=== PATIENT | female | born 1990 | race Two or more races ===

== ENCOUNTER 2019-01-31 21:02 | Inpatient (IN) | payer OTHER ==
[~2019-01-31] VITALS: Ht 157.5 cm; Wt 51.7 kg
[2019-01-31 21:19] LABS: BASOPHILS % (AUTO) 0.2 % (0.0-2.0); HEMATOCRIT 47 % (33-45); HEMOGLOBIN 15.5 g/dL (11.5-14.8); LYMPHOCYTES # (AUTO) 0.9 /CMM (0.8-4.8); LYMPHOCYTES % (AUTO) 5.9 % (20.0-44.0); MEAN CORPUSCULAR HGB CONC 33 g/dl (31.0-36.0); MEAN CORPUSCULAR VOLUME 92 fL (82-100); MONOCYTES # (AUTO) 0.9 /CMM (0.1-1.30); NEUTROPHILS # (AUTO) 13.6 /CMM (1.8-8.9); NEUTROPHILS % (AUTO) 87.9 % (43.0-81.0); PLATELET COUNT (AUTO) 226 /CMM (150-450); RED BLOOD CELL COUNT(AUTO) 5.11 MIL/uL (4.0-5.2); WHITE BLOOD COUNT (AUTO) 15.5 K/uL (4.3-11.0)
[2019-01-31] MEDS ORDERED: IV NS 0.9% 1,000 ML BAG IV ONE (21:30)
[2019-01-31 21:34] LABS: ALBUMIN 3.9 g/dL (3.4-5.0); ALCOHOL, BLOOD < 3 mg/dL (0-0); ALKALINE PHOSPHATASE 137 U/L (46-116); BILIRUBIN,DIRECT 0.2 mg/dL (0.0-0.2); BILIRUBIN,TOTAL 0.5 mg/dL (0.2-1.0); CALCIUM, SERUM 7.4 mg/dL (8.5-10.1); CARBON DIOXIDE 25 mmol/L (21-32); CHLORIDE 100 mmol/L (98-107); CREATININE 3.8 mg/dL (0.6-1.3); GLUCOSE 147 mg/dL (74-106); POTASSIUM 4.4 mmol/L (3.5-5.1); SODIUM SERUM 138 mmol/L (136-145); TOTAL PROTEIN, SERUM 7.6 g/dL (6.4-8.2)
[2019-01-31 21:37] LABS: ACETAMINOPHEN 0 ug/ml (10-30); SALICYLATE 1.9 mg/dL (2.8-20.0); UREA NITROGEN, BLOOD 82 mg/dL (7-18)
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
[2019-01-31 22:06] LABS: APPEARANCE,URINE Cloudy (CLEAR); BILIRUBIN,URINE SMALL (NEGATIVE); BLOOD, URINE Moderate Ery/uL (NEGATIVE); COLOR,URINE Yellow (YELLOW); KETONES,URINE 15 (NEGATIVE); LEUKOCYTE ESTERASE ,URINE Trace (NEGATIVE); NITRITE, URINE Negative (NEGATIVE); PH,URINE 8.5 (5.0-8.0); PROTEIN,URINE 30 mg/dl (NEGATIVE); UGLUCOSE Negative (NEGATIVE); UROBILINOGEN,URINE 0.2 EU/dL (0.2)
[2019-01-31 22:18] LABS: BACTERIA,URINE 3+ /HPF (None Seen); SQUAMOUS EPITHELIAL CELL,UR Few /HPF (None Seen)
[2019-01-31 22:30] LABS: MAGNESIUM 2.7 mg/dL (1.8-2.4); PHOSPHORUS 6.6 mg/dL (2.5-4.9)
--- NOTE | 2019-01-31 22:32 | NUR ---
Henrik Weems - [facility] [phone]
[2019-01-31 22:38] LABS: ALANINE AMINOTRANSFERASE 1146 U/L (12-78); ASPARTATE AMINOTRANSFERASE 3539 U/L (15-37)
[2019-01-31] MEDS ORDERED: LABETALOL HCL IV 100MG VIAL ONE (22:57)
[2019-01-31] MEDS ORDERED: LABETALOL 20 MG/4 ML VIAL IV ONE (23:00)
--- NOTE | 2019-01-31 23:06 | NUR ---
MEDICATED 10 MG OF LABETALOL IVP PER DR. HDZ, PT REYES WELL.
--- NOTE | 2019-01-31 23:24 | NUR ---
DR. HDZ AWARE OF LOW BP. STARTED NS [address] HDZ'S ORDER.
[2019-01-31] MEDS ORDERED: IV NS 0.9% 1,000 ML IV PRN (23:30)
[2019-01-31] MEDS ORDERED: MAG HYDROX/AL HYDROX/SIMETH 30 ML UDC PO PRN (23:30)
[2019-01-31] MEDS ORDERED: Z GUARD REMEDY 2 OZ OINT TP PRN (23:30)
[2019-01-31] MEDS ORDERED: IV NS 0.9% 500 ML BAG IV ONE (23:30)
[2019-01-31] MEDS ORDERED: MAGNESIUM HYDROXIDE 30 ML UDC PO PRN (23:30)
[2019-01-31] MEDS ORDERED: ONDANSETRON HCL/PF 4 MG/2 ML VIAL IVP PRN (23:30)
[2019-02-01] VITALS (30 sets, daily range): BP systolic 96–121; BP diastolic 37–96
--- NOTE | 2019-02-01 00:02 | NUR ---
PT ASLEEP, EASILY AWAKEN BY VERBAL STIMULI & WILL GO BACK TO SLEEP. RR EVEN & UNLABORED. ON ASSISTANT CLINICAL DIRECTOR, ST. WILL CONT TO MONITOR.
[2019-02-01] MEDS ORDERED: ENOXAPARIN SODIUM 60 MG/0.6 ML DISP.SYRIN SQ ONE ×2 (00:17→00:30)
--- NOTE | 2019-02-01 00:58 | NUR ---
[facility] called for higher level of care.
--- NOTE | 2019-02-01 01:04 | NUR ---
Call from Dr Reina, Patient not accepted at [facility].
--- NOTE | 2019-02-01 01:14 | NUR ---
[facility] called for transfer.
--- NOTE | 2019-02-01 02:03 | NUR ---
Call from [facility]. Pt not accepted.
--- NOTE | 2019-02-01 02:10 | NUR ---
Call back from [facility]. Pt not accepted.
--- NOTE | 2019-02-01 02:25 | NUR ---
SPOKE TO [facility] CALL [facility], PER ROXANN DECLINED ADMISSION.
--- NOTE | 2019-02-01 02:30 | NUR ---
Report given to Sobeida HUMPHREYS.
[2019-02-01] MEDS ORDERED: CEFTRIAXONE 1 G VIAL ONE (02:39)
--- NOTE | 2019-02-01 02:59 | NUR ---
pt to icu via gurney via gurney. als protocol with emt and rn,.
[2019-02-01] MEDS: CEFTRIAXONE 1 G in IV D5W 50 ML IV SCH (03:07)
[2019-02-01] MEDS ORDERED: LORAZEPAM INJ 2 MG/ML VIAL IV ONE (03:30)
[2019-02-01] MEDS ORDERED: LORAZEPAM INJ 2 MG/ML VIAL ONE (03:30)
--- NOTE | 2019-02-01 03:40 | NUR ---
DIRECTOR OF BUSINESS DEVELOPMENT NOTE RECEIVED PT VIA PokenRJANET. ALERT TO NAME. NOTED AGITATED,RESTLESS, CONFUSED AND YELLING. ON ROOM AIR, BREATHING REGULAR AND UNLABORED. TELE-ST. AFEBRILE. SPOKE WITH POWER GENERATION TURBINE ROOM OPERATOR JOLYNN SIEGEL WITH ORDERS FOR ATIVAN 1MG IVP X1 DOSE. ORDERS NOTED AND CARRIED OUT. PLACED PT ON BILATERAL SOFT WRIST RESTRAINTS WITH NO DISCOLORATION NOTED AND PALPABLE PULSES BILATERALLY. BED ALARM ENABLED, BED IN LOWEST POSITION AND LOCKED IN PLACE. CALL LIGHT WITHIN REACH. WILL CONTINUE TO MONITOR.
[2019-02-01 04:41] LABS: BASOPHILS % (AUTO) 0.1 % (0.0-2.0); EOSINOPHILS % (AUTO) 0.1 % (0.0-6.0); HEMATOCRIT 41 % (33-45); HEMOGLOBIN 13.7 g/dL (11.5-14.8); LYMPHOCYTES # (AUTO) 1.2 /CMM (0.8-4.8); LYMPHOCYTES % (AUTO) 8.9 % (20.0-44.0); MEAN CORPUSCULAR HGB CONC 33 g/dl (31.0-36.0); MEAN CORPUSCULAR VOLUME 92 fL (82-100); MONOCYTES # (AUTO) 0.8 /CMM (0.1-1.30); MONOCYTES % (AUTO) 5.8 % (2.0-12.0); NEUTROPHILS # (AUTO) 11.8 /CMM (1.8-8.9); NEUTROPHILS % (AUTO) 85.1 % (43.0-81.0); PLATELET COUNT (AUTO) 176 /CMM (150-450); RED BLOOD CELL COUNT(AUTO) 4.46 MIL/uL (4.0-5.2); WHITE BLOOD COUNT (AUTO) 13.9 K/uL (4.3-11.0)
[2019-02-01 05:04] LABS: THYROID STIMULATING HORMONE 0.153 uIU/mL (0.358-3.74)
[2019-02-01 05:08] LABS: ALBUMIN 3.2 g/dL (3.4-5.0); BILIRUBIN,DIRECT 0.2 mg/dL (0.0-0.2); BILIRUBIN,TOTAL 0.5 mg/dL (0.2-1.0); CALCIUM, SERUM 6.8 mg/dL (8.5-10.1); CREATININE 3.1 mg/dL (0.6-1.3); MAGNESIUM 2.7 mg/dL (1.8-2.4); PHOSPHORUS 5.8 mg/dL (2.5-4.9); POTASSIUM 4.1 mmol/L (3.5-5.1); TOTAL PROTEIN, SERUM 6.4 g/dL (6.4-8.2)
--- NOTE | 2019-02-01 07:12 | NUR ---
FIELD HANDYMAN INITIAL NOTES Rec'd pt on bed, lethargic, arousable to touch. On NC at 2lpm, no SOB. ST on telemonitor. Has 2 IV line access - L AC G18 w/ NS x 150 cc/hr infusing well & R wrist G20 SL, flushing well w/ no s/sx of infection/infiltration noted. Abdomen/bladder distended, tender upon palpation. B soft wrist restraints on d/t episode of restlessness & agitation. Safety precaution in place w/ bed in lowest & locked pos. Call light placed w/in reach. Will cont to monitor & attend pt needs.
--- NOTE | 2019-02-01 07:50 | NUR ---
Pt seen & examined by Dr. Soler w/ orders to do ECG.
--- NOTE | 2019-02-01 08:30 | NUR ---
Dr. Perales seen & examined pt, updated about pt status. MD agreed to insert IFC d/t bladder distention. On abdominal US showed 1.1L of urine. FC inserted via aseptic technique, able to drain 1.4L cloudy tea colored UOP.
[2019-02-01] MEDS: PANTOPRAZOLE 40 MG VIAL IV SCH (09:22)
--- NOTE | 2019-02-01 09:32 | NUR ---
CK MB 143.[address] Soler w/ NNO.
[2019-02-01] MEDS: IV NS 0.9% 1,000 ML IV PRN ×2 (09:37→18:15)
[2019-02-01 15:17] LABS: CREATININE, URINE 131.5 MG/DL (30.0-125.0); URINE TOTAL PROTEIN 83.7 mg/dL (0-11.9)
[2019-02-01 15:19] LABS: APPEARANCE,URINE Clear (CLEAR); BILIRUBIN,URINE SMALL (NEGATIVE); BLOOD, URINE Large Ery/uL (NEGATIVE); COLOR,URINE Yellow (YELLOW); KETONES,URINE Trace (NEGATIVE); LEUKOCYTE ESTERASE ,URINE Small (NEGATIVE); NITRITE, URINE Negative (NEGATIVE); PH,URINE 7.5 (5.0-8.0); PROTEIN,URINE 100 mg/dl (NEGATIVE); UGLUCOSE Negative (NEGATIVE); UROBILINOGEN,URINE 0.2 EU/dL (0.2)
[2019-02-01 15:27] LABS: BACTERIA,URINE 1+ /HPF (None Seen); SQUAMOUS EPITHELIAL CELL,UR Few /HPF (None Seen)
[2019-02-01 17:12] LABS: EOSINOPHIL,URINE None Seen
--- NOTE | 2019-02-01 18:33 | NUR ---
HIDE STRETCHER HAND CLOSING NOTES Pt resting comfortably on her bed, not in any distress. No SOB while on R/A. Remains ST on telemonitor. 2 IV line access - L AC G18 w/ NS x 150 cc/hr infusing well & R wrist G20 SL, kept patent & intact w/ no s/sx of infection/infiltration noted. FC kept patent & intact draining to tea colored yellowish UOP w/ pungent odor. B soft wrist restraints kept on d/t episode of restlessness & agitation. Safety precaution kept in place at all times w/ bed in lowest & locked pos. Call light placed w/in reach. Will endorse to PM RN for NANCY.
--- NOTE | 2019-02-01 19:40 | NUR ---
ICU/RECEIVING COORDINATOR RECEIVED REPORT FROM DAY SHIFT NURSE. SEE FLOWSHEET FOR ASSESSMENT. THERE IS ONLY ONE SKIN ISSUES THAT PT HAS, WHICH IS ADDRESSED ON FLOWSHEET ALONG WITH THE INTERVENTION. PT IS NPO, AND LETHARGIC. PT WAS THEN TURNED AND REPOSITIONED FOR COMFORT AND CARE. WILL MONITOR THIS PT.
--- NOTE | 2019-02-01 20:20 | NUR ---
ICU/COPY PREPARER FAMILY AT BEDSIDE, PT IS ACTING OUT, SOME AGITATION NOTED AT THIS TIME. WILL MONITOR THIS PT. MOTHER APPEARS TO ENABLE DAUGHTER TO SOME DEGREE BAD BEHAVIOR. WILL CONTINUE TO MONITOR THIS PT.
--- NOTE | 2019-02-01 21:05 | NUR ---
ICU/SEAMLESS HOSIERY KNITTER EXTREME AGITATION NOTED AT THIS TIME, POSSIBLE DETOX FROM THE POLYSUBSTANCE. NICHOLAS CALLED FOR ATIVAN
[2019-02-01] MEDS: LORAZEPAM INJ 2 MG/ML VIAL IV PRN (21:15)
--- NOTE | 2019-02-01 21:30 | NUR ---
ICU/VENTILATION MECHANIC OBTAINED ORDER FOR ATIVAN 1MG PRN IVP Q 2 HRS FOR AGITATION. CHARGE NURSE MADE AWARE OF THIS ORDER. IT WAS GIVEN. ASKED PARENTS TO LEAVE SO THAT PT COULD REST. WILL CONTINUE TO MONITOR THIS PT.
[2019-02-02] VITALS (18 sets, daily range): BP systolic 113–145; BP diastolic 64–93
[2019-02-02] MEDS: IV NS 0.9% 1,000 ML IV PRN (00:39)
--- NOTE | 2019-02-02 00:40 | NUR ---
ICU/QUALITY ENGINEER MEDICAL DEVICE PT WAS GIVEN AM CARE, TRIED TO GIVE ORAL CARE. PT ISN'T TOLERATED THIS WELL AT ALL, WAS VERY AGITATED. PT REMAINS ON ROOM AIR WITH SATURATION AT 98-100%. PT WAS TUNED AND REPOSITIONED FOR COMFORT AND CARE. WILL CONTINUE TO MONITOR THIS PT. NO ACUTE DISTRESS SEEN.
[2019-02-02] MEDS: CEFTRIAXONE 1 G in IV D5W 50 ML IV SCH (02:08)
[2019-02-02] MEDS: LORAZEPAM INJ 2 MG/ML VIAL IV PRN ×7 (02:08→22:22)
--- NOTE | 2019-02-02 02:10 | NUR ---
ICU/JUKE BOX SERVICER ATIVAN 1MG GIVEN VIA IVP BY CHARGE NURSE FOR EXTREME AGITATION. PT IS YELLING, KICKING, UNABLE TO REASON WITH PT. WILL CONTINUE TO MONITOR THIS PT. NO ACUTE DISTRESS SEEN AT THIS TIME.
[2019-02-02 04:37] LABS: BASOPHILS % (AUTO) 0.3 % (0.0-2.0); EOSINOPHILS % (AUTO) 0.9 % (0.0-6.0); HEMATOCRIT 38 % (33-45); HEMOGLOBIN 12.6 g/dL (11.5-14.8); LYMPHOCYTES # (AUTO) 0.9 /CMM (0.8-4.8); LYMPHOCYTES % (AUTO) 9.1 % (20.0-44.0); MEAN CORPUSCULAR HGB CONC 33 g/dl (31.0-36.0); MEAN CORPUSCULAR VOLUME 96 fL (82-100); MONOCYTES % (AUTO) 9.8 % (2.0-12.0); NEUTROPHILS # (AUTO) 8.3 /CMM (1.8-8.9); NEUTROPHILS % (AUTO) 79.9 % (43.0-81.0); PLATELET COUNT (AUTO) 118 /CMM (150-450); RED BLOOD CELL COUNT(AUTO) 3.97 MIL/uL (4.0-5.2); WHITE BLOOD COUNT (AUTO) 10.3 K/uL (4.3-11.0)
[2019-02-02 04:59] LABS: ALBUMIN 2.6 g/dL (3.4-5.0); BILIRUBIN,DIRECT 0.1 mg/dL (0.0-0.2); BILIRUBIN,TOTAL 0.5 mg/dL (0.2-1.0); CREATININE 1.3 mg/dL (0.6-1.3); MAGNESIUM 2.5 mg/dL (1.8-2.4); PHOSPHORUS 2.1 mg/dL (2.5-4.9); POTASSIUM 4.2 mmol/L (3.5-5.1); TOTAL PROTEIN, SERUM 5.4 g/dL (6.4-8.2)
--- NOTE | 2019-02-02 05:00 | NUR ---
ICU/EVENT PRODUCER AM LABS WERE DRAWN, AWAIT FOR ANY ABNORMAL RESULTS
--- NOTE | 2019-02-02 06:00 | NUR ---
ICU/SMALL PARTS SHAPER OPERATOR CRITICAL LAB OF TROP 5.345 CALLED, HOWEVER THIS IS TRENDING DOWN FROM 12 YESTERDAY.
--- NOTE | 2019-02-02 06:40 | NUR ---
ICU/GRAIN SAMPLER ATIVAN 1MG GIVEN VIA IVP BY CHARGE NURSE FOR EXTREME AGITATION. PT IS YELLING, KICKING, UNABLE TO REASON WITH PT. WILL CONTINUE TO MONITOR THIS PT. NO ACUTE DISTRESS SEEN AT THIS TIME.
--- NOTE | 2019-02-02 07:10 | NUR ---
VICE PRESIDENT SALES AND MARKETING INITIAL NOTES Rec'd pt on bed, drowsy, A/O x 1. On R/A w/ no SOB. ST on telemonitor. Has L AC G18 w/ NS x 150 cc/hr infusing well w/ no s/sx of infection/infiltration noted. FC draining to yellowish UOP. B soft wrist restraints on d/t restlessness & agitation. Safety precaution in place w/ bed in lowest & locked pos. Call light placed w/in reach. Will cont to monitor & attend pt needs.
[2019-02-02] MEDS: IV 1/2NS 1000 ML 1,000 ML IV PRN ×2 (07:43→16:19)
--- NOTE | 2019-02-02 08:00 | NUR ---
Pt seen & examined by Dr. Perales, updated about pt hx. Per , okay to downgrade to Tele w/ 1:1 sitter. CN & Nursing sup Lyndsay made aware.
[2019-02-02] MEDS: PANTOPRAZOLE 40 MG VIAL IV SCH (08:43)
[2019-02-02] MEDS ORDERED: POTASSIUM PHOSPHATE MM 7.5 MMOL in IV D5W 100 ML IV SCH (11:00)
--- NOTE | 2019-02-02 11:00 | NUR ---
Pt seen & examined by Dr. Soler, w/ orders made & carried out. updated about pt status.
--- NOTE | 2019-02-02 14:43 | NUR ---
Parents of the pt came, aware of the pt's aggressive & restless behavior. Made them aware that pt keep on removing her restraints & tries to get out of the bed.
--- NOTE | 2019-02-02 15:40 | NUR ---
TORPEDO SHOOTERANTIQUE FURNITURE REPRODUCER NOTES: Pt transferred to rm 102, tele status as ordered. Pt remains A/O x 1, drowsy. ST on telemonitor. IV line kept patent & intact w/ no s/sx of infection/infiltration noted w/ /2 NS x 125 cc/hr & Kphos drip infusing well. B soft wrist restraints kept on for pt's safety d/t restlessness/agitation. FC kept patent & intact draining to yellowish UOP. All belongings sent w/ pt including pt's medications. Report given to Maylin HUMPHREYS. No concerns/issues identified during transfer.
--- NOTE | 2019-02-02 16:00 | NUR ---
RN NOTE PER DR MONTANA, TO TAKE OUT SIM, SINCE PT IS AGITATED, KICKING AND PULLING SIM. ALSO PT IS STILL AGITATED AFTER A DOSE OF ATIVAN 1 MG, HE ORDERED TO INCREASE DOSE ATIVAN IV 2 MG Q2HR. WILL ORDER AND FOLLOW THROUGH.
--- NOTE | 2019-02-02 19:10 | NUR ---
RN CLOSING NOTE PT REMAINED CALM SINCE 1729, FELL ASLEEP. FAMILY AT BEDSIDE.
--- NOTE | 2019-02-02 21:17 | NUR ---
TRANSFER OF CARE 2116 RECEIVED PATIENT FROM PETR HALEY, AT 2116. PATIENT CURRENTLY IN BED, AGITATED, SCREAMING. A/O X 1. FAMILY AT BED SIDE. NO SIGNS OF RESPIRATORY DISTRESS NOTED. NO SHORTNESS OF BREATH NOTED. ON TELEMONITOR. HAS IV SITE LAC #18 G, WITH 1/2 NS @ 125 ML/HR, INFUSING WELL WITH NO S/S OF INFECTION/INFILTRATION NOTED. B SOFT WRIST RESTRAINTS ON DUE TO AGITATION AND RESTLESSNESS. VITAL SIGNS FOR 1999: TEMP 98.8 F VIA PO, HR 109, RESPIRATIONS 19, O2 SAT 100% ON ROOM AIR, BP 138/77, NO PAIN. FAMILY AT BED SIDE. SAFETY PRECAUTIONS IMPLEMENTED; CALL LIGHT WITHIN REACH, BED LOWEST POSITION, BED LOCKED, SIDE RAILS UP X2. WILL CONTINUE TO MONITOR.
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
[2019-02-02] MEDS ORDERED: ACETAMINOPHEN 650 MG/SUPP.RECT RC ONE (21:30)
--- NOTE | 2019-02-02 21:45 | NUR ---
RN NOTES 7866 TYLENOL SUPPOSITORY WAS REQUESTED BY FAMILY. BENTLEY CULP, AND BENTLEY MERRITT, AT BED SIDE TO WITNESS AND ASSIST ADMINISTRATION OF TYLENOL SUPPOSITORY. PATIENT TOLERATED WELL. WILL CONTINUE TO MONITOR.
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
[2019-02-03] VITALS: BP 119/81
[2019-02-03] MEDS: CEFTRIAXONE 1 G in IV D5W 50 ML IV SCH (02:25)
[2019-02-03 04:00] VITALS: BP 113/72
[2019-02-03] MEDS: LORAZEPAM INJ 2 MG/ML VIAL IV PRN ×6 (04:47→22:03)
--- NOTE | 2019-02-03 04:48 | NUR ---
RN NOTES PATIENT AGITATED. PATIENT TRIED TO KICK MYSELF AND ROBBI HAGAN. PATIENT SCREAMING PROFANITIES. VITAL SIGNS STABLE. WILL CONTINUE TO MONITOR.
--- NOTE | 2019-02-03 04:49 | NUR ---
RN NOTES ADMINISTERED LORAZEPAM 2MG/ML FOR AGITATION.
[2019-02-03 05:50] LABS: ALBUMIN 2.6 g/dL (3.4-5.0); BILIRUBIN,DIRECT 0.2 mg/dL (0.0-0.2); BILIRUBIN,TOTAL 0.5 mg/dL (0.2-1.0); TOTAL PROTEIN, SERUM 5.1 g/dL (6.4-8.2)
--- NOTE | 2019-02-03 06:11 | NUR ---
RN NOTES PATIENT IV WAS BEING PULLED ACCIDENTALLY AND THEN BECAME LOOSE WHILE CHANGING HER. IV SITE LEAKING. REMOVED IV SITE: LAC. WILL TRY TO ATTEMPT TO REINSERT NEW IV LATER.
--- NOTE | 2019-02-03 06:58 | NUR ---
RN CLOSING NOTES PATIENT IS CURRENTLY AWAKE. A/O X 1. UNABLE TO FOLLOW DIRECTIONS AT THIS TIME. PATIENT YELLING, SCREAMING CURRENTLY. NO SIGNS OF RESPIRATORY DISTRESS NOTED. NO SHORTNESS OF BREATH NOTED. ON TELEMONITOR. PATIENT MOVING AROUND TOO MUCH WHEN TRYING TO REINSERT IV, SUCH KICKING HER LEGS OUT AND MOVING HER BODY TOO MUCH. UNABLE TO ESTABLISH NEW IV SITE AT THIS TIME. TRIED TWICE TO REINSERT. B SOFT WRIST RESTRAINTS REMAIN ON, RENEWED. POSITION CHANGED, SAFETY CHECKS Q15 MINUTES, SKIN/CIRCULATION WITHIN NORMAL LIMITS. ALL NEEDS MET AT THIS TIME. NO COMPLAINTS OF PAIN THROUGHOUT THE SHIFT. VITALS STABLE. PATIENT KEPT CLEAN, DRY, AND COMFORTABLE WITH THE HELP OF ROBBI HAGAN, NEEDED. SAFETY PRECAUTIONS IMPLEMENTED; CALL LIGHT WITHIN REACH, BED LOWEST POSITION, BED LOCKED, SIDE RAILS UP X2. WILL ENDORSE TO DAY SHIFT NURSE FOR CONTINUITY OF CARE.
--- NOTE | 2019-02-03 07:20 | NUR ---
RN INITIAL NOTE PATIENT IN BED, SCREAMING AND YELLING. UNABLE TO FOLLOW DIRECTIONS AT THIS TIME. ALERT X2. SHE KNOWS WHAT HAPPENED TO HER AND THAT SHE TOOK COCAINE. PATIENT KEEPS FIGHTING HER BILATERAL RESTRAINTS AND KICKING NON STOP. NO IV LINE NOTED. WILL INSERT CHRISTIANO. REORIENTED PATIENT TO HER ROOM AND WHAT IS GOING ON. BED LOCKED AND IN LOWEST POSITION. WILL CONTINUE TO MONITOR
[2019-02-03 08:00] VITALS: BP 121/70
--- NOTE | 2019-02-03 08:00 | NUR ---
RN NOTE NEW SITTER ORDER. BILATERAL SOFT RESTRAINTS REMOVED.
--- NOTE | 2019-02-03 08:08 | NUR ---
WOUND CARE CONSULT: PT PRESENTS WITH INCONTINENCE OF STOOL AND RT HEEL INTACT DEEP TISSUE INJURY, PRESENT ON ADMISSION. PT MOVES ABOUT IN BED AND SCREAMS AT TIMES. SITTER AT BEDSIDE. RECOMMENDATIONS MADE FOR SKIN PROTECTION AND WOUND CARE. DISCUSSED WITH NURSING STAFF. WILL SEE PRN. CHOI IN AGREEMENT WITH PLAN OF CARE. Addendum: 02/03/19 at 0815 by ZANDRA ALMAZAN WNDNU Amended: Links added.
[2019-02-03] MEDS: PANTOPRAZOLE 40 MG VIAL IV SCH (08:23)
--- NOTE | 2019-02-03 08:30 | NUR ---
RN NOTE PATIENT WAS GIVEN ATIVAN PRN ORDERED.
[2019-02-03] MEDS: IV 1/2NS 1000 ML 1,000 ML IV PRN ×3 (11:28→20:53)
[2019-02-03 12:00] VITALS: BP 116/74
[2019-02-03 16:00] VITALS: BP 113/75
--- NOTE | 2019-02-03 19:22 | NUR ---
RN CLOSING NOTE PATIENT IN BED, VERY AGITATED. SITTER AT BEDSIDE. NEW IV SITE ESTABLISHED AT LEFT HAND #20 WITH HALF NS AT 125 ML/HR. WAS GIVEN ATIVAN AT 1800 ORDERED, PRN Q2H. ALL MEDS GIVEN. ALL NEEDS MET. UNABLE TO COMPREHEND AT THIS TIME. REPORT GIVEN TO NOC SHIFT FOR NANCY
[2019-02-03 20:00] VITALS: BP 132/85
[2019-02-03 23:13] LABS: ALBUMIN 2.8 g/dL (3.4-5.0); BILIRUBIN,DIRECT 0.2 mg/dL (0.0-0.2); BILIRUBIN,TOTAL 0.7 mg/dL (0.2-1.0); TOTAL PROTEIN, SERUM 5.3 g/dL (6.4-8.2)
[2019-02-04] MEDS: CEFTRIAXONE 1 G in IV D5W 50 ML IV SCH (02:55)
[2019-02-04] MEDS: LORAZEPAM INJ 2 MG/ML VIAL IV PRN (04:27)
--- NOTE | 2019-02-04 07:15 | NUR ---
MACHINE TOOL DRESSER OPENING RECEIVED REPORT FRO PM NURSE.PATIENT IN BED. MILD AGITATION .SITTER AT BEDSIDE. IV ON LEFT HAND #20 WITH HALF NS AT 125 ML/HR. AXOX1.NO SOB NO DISTRESS NOTED.ON TELE MONITOR SR WITH HR 75.SAFETY MEASURES IN PLACE.BED IS LOCKED AND IN LOW POSITION.SRX4 WITH SEIZURE PRECAUTIONS.WILL CONTINUE TO MONITOR.
[2019-02-04 08:00] VITALS: BP 118/77
[2019-02-04 08:09] VITALS: BP 118/77
[2019-02-04 08:09] LABS: BASOPHILS % (AUTO) 0.1 % (0.0-2.0); EOSINOPHILS % (AUTO) 0.4 % (0.0-6.0); HEMATOCRIT 32 % (33-45); HEMOGLOBIN 10.9 g/dL (11.5-14.8); LYMPHOCYTES # (AUTO) 1.9 /CMM (0.8-4.8); LYMPHOCYTES % (AUTO) 17.2 % (20.0-44.0); MEAN CORPUSCULAR HGB CONC 34 g/dl (31.0-36.0); MEAN CORPUSCULAR VOLUME 92 fL (82-100); MONOCYTES # (AUTO) 1.3 /CMM (0.1-1.30); MONOCYTES % (AUTO) 11.7 % (2.0-12.0); NEUTROPHILS # (AUTO) 7.9 /CMM (1.8-8.9); NEUTROPHILS % (AUTO) 70.6 % (43.0-81.0); PLATELET COUNT (AUTO) 125 /CMM (150-450); RED BLOOD CELL COUNT(AUTO) 3.52 MIL/uL (4.0-5.2); WHITE BLOOD COUNT (AUTO) 11.2 K/uL (4.3-11.0)
[2019-02-04] MEDS ORDERED: ACETAMINOPHEN 650 MG/SUPP.RECT RC PRN (08:30)
[2019-02-04] MEDS: PANTOPRAZOLE 40 MG VIAL IV SCH (08:36)
[2019-02-04] MEDS: IV 1/2NS 1000 ML 1,000 ML IV PRN (08:43)
[2019-02-04 09:08] LABS: ALBUMIN 2.6 g/dL (3.4-5.0); BILIRUBIN,TOTAL 0.5 mg/dL (0.2-1.0); CALCIUM, SERUM 7.3 mg/dL (8.5-10.1); CREATININE 0.8 mg/dL (0.6-1.3); MAGNESIUM 1.4 mg/dL (1.8-2.4); PHOSPHORUS 3.2 mg/dL (2.5-4.9); TOTAL PROTEIN, SERUM 5.1 g/dL (6.4-8.2)
[2019-02-04] MEDS ORDERED: POTASSIUM CHLORIDE 20 MEQ TAB.PRT.SR PO SCH (11:30)
[2019-02-04] MEDS: POTASSIUM CL. PREMIX PERIPHER. 50 ML IV SCH ×2 (12:09→15:11)
[2019-02-04] MEDS ORDERED: Magnesium 1GM/D5W 100ML PREMIX 100 ML IV ONE (14:00)
--- NOTE | 2019-02-04 14:00 | NUR ---
MS RN NOTE SEEN BY UPDATED ABOUT ATIENT CONDITION WITH LABS.GOT NEW ORDER FOR MG 4G.OK TO PLACE ON REGULAR DIET IF PATIENT PASS BED SIDE SWALLOW.
[2019-02-04 16:00] VITALS: BP 140/75
[2019-02-04] MEDS ORDERED: POTASSIUM CHLORIDE 20 MEQ TAB.PRT.SR PO ONE (17:00)
--- NOTE | 2019-02-04 17:00 | NUR ---
MS RN NOTE PATIENT OUT FOR CT SCAN,UNABLE TO DO SCAN BECAUSE PATIENT WAS MOVING NOT FOLLOWING COMMANDS.
[2019-02-04] MEDS ORDERED: Magnesium 1GM/D5W 100ML PREMIX PIGGYBACK IV SCH (18:00)
[2019-02-04] MEDS: Magnesium 1GM/D5W 100ML PREMIX 100 ML IV SCH ×3 (18:34→20:46)
--- NOTE | 2019-02-04 18:50 | NUR ---
MS RN CLOSING NOTE .PATIENT IN BED.AXOX1 .SITTER AT BEDSIDE. IV ON R HAND #22 WITH HALF NS AT 125 ML/HR.NO SOB NO DISTRESS NOTED.SAFETY MEASURES IN PLACE.BED IS LOCKED AND IN LOW POSITION.SRX4 WITH SEIZURE PRECAUTIONS.PATIENT REFUSED IVF DURING CARE.IV PULLED OUT.INSERTED NNEW IV LINE.WILL ENDORSE TO PM NURSE FOR NANCY.
--- NOTE | 2019-02-04 19:44 | NUR ---
MS RN NOTES, PATIENT IN BED SLEEPING AT THIS TIME, BREATHING EVEN AND UNLABORED, NO SOB/ACUTE DISTRESS NOTED AT THIS TIME, RIGHT HAND #22 WITH HALF NS AT 125 ML/HR, AND MAGNESIUM IV INFUSING AT THIS TIME, ONE MORE BAG TO GO, SAFETY MEASURES IN PLACE, BED LOCKED AND IN LOWEST POSITION, SITTER AT BEDSIDE, SRX4 PADDED S/R FOR SEIZURE PRECAUTIONS, WILL CONTINUE TO MONITOR CLOSELY.
[2019-02-04 20:00] VITALS: BP 123/82
[2019-02-04] MEDS: ACETAMINOPHEN 325 MG TABLET PO PRN (23:22)
[2019-02-05] MEDS: IV 1/2NS 1000 ML 1,000 ML IV PRN ×2 (00:28→19:49)
[2019-02-05] MEDS: CEFTRIAXONE 1 G in IV D5W 50 ML IV SCH (03:10)
[2019-02-05 04:00] VITALS: BP 121/79
[2019-02-05] MEDS: LORAZEPAM INJ 2 MG/ML VIAL IV PRN ×4 (05:16→15:33)
[2019-02-05 06:21] LABS: BASOPHILS % (AUTO) 0.3 % (0.0-2.0); EOSINOPHILS % (AUTO) 0.9 % (0.0-6.0); HEMATOCRIT 32 % (33-45); HEMOGLOBIN 10.8 g/dL (11.5-14.8); LYMPHOCYTES # (AUTO) 1.8 /CMM (0.8-4.8); LYMPHOCYTES % (AUTO) 13.6 % (20.0-44.0); MEAN CORPUSCULAR HGB CONC 34 g/dl (31.0-36.0); MEAN CORPUSCULAR VOLUME 90 fL (82-100); MONOCYTES # (AUTO) 1.4 /CMM (0.1-1.30); MONOCYTES % (AUTO) 10.6 % (2.0-12.0); NEUTROPHILS # (AUTO) 9.6 /CMM (1.8-8.9); NEUTROPHILS % (AUTO) 74.6 % (43.0-81.0); PLATELET COUNT (AUTO) 143 /CMM (150-450); RED BLOOD CELL COUNT(AUTO) 3.51 MIL/uL (4.0-5.2); WHITE BLOOD COUNT (AUTO) 12.9 K/uL (4.3-11.0)
--- NOTE | 2019-02-05 06:36 | NUR ---
RN NOTES, PATIENT IN BED AWAKE AT THIS TIME, BUT EASILY AROUSES TO TACTILE/VERBAL STIMULI, NO SOB/ACUTE DISTRESS NOTED, NO SIGNIFICANT CHANGE IN CONDITION DURING THE NIGHT, PATIENT KEPT DRY AND CLEAN, ALL NEEDS PROVIDED, SEIZURE PRECAUTIONS MAINTAINED, CALL LIGHT W/I REACH, WILL ENDORSE CONTINUITY OF CARE TO ONCOMING NURSE.
--- NOTE | 2019-02-05 07:00 | NUR ---
RN INITIAL NOTE PATIENT IN BED, ASLEEP BUT EASILY AROUSABLE TO NAME. ABLE TO FOLLOW SIMPLE DIRECTIONS AT THIS TIME. ALERT X2. HAS A RIGHT HAND #22 WITH HALF NS RUNNING AT 125 ML/HR. REORIENTED PATIENT TO HER ROOM AND WHAT IS GOING ON. SITTER AT BEDSIDE. BED LOCKED AND IN LOWEST POSITION. CALL LIGHT WITHIN REACH. WILL CONTINUE TO MONITOR
[2019-02-05 07:03] LABS: ALBUMIN 2.5 g/dL (3.4-5.0); BILIRUBIN,DIRECT 0.2 mg/dL (0.0-0.2); BILIRUBIN,TOTAL 0.6 mg/dL (0.2-1.0); CALCIUM, SERUM 7.1 mg/dL (8.5-10.1); CREATININE 0.7 mg/dL (0.6-1.3); MAGNESIUM 1.7 mg/dL (1.8-2.4); PHOSPHORUS 2.8 mg/dL (2.5-4.9); TOTAL PROTEIN, SERUM 4.9 g/dL (6.4-8.2)
[2019-02-05 07:34] LABS: POTASSIUM 2.8 mmol/L (3.5-5.1)
[2019-02-05 08:00] VITALS: BP 138/86
[2019-02-05] MEDS: PANTOPRAZOLE 40 MG VIAL IV SCH (08:18)
--- NOTE | 2019-02-05 10:14 | NUR ---
RN NOTE PATIENT HAS BEEN PICKED UP BY RADIOLOGY TO DO CT OF THE HEAD WITHOUT CONTRAST. VSS. PATIENT IS ASLEEP, BREATHING NON LABORED. ON ROOM AIR. NO SIGNS OF ANY DISTRESS AT THIS TIME.
[2019-02-05] MEDS: POTASSIUM CHLORIDE 20 MEQ TAB.PRT.SR PO SCH ×4 (10:37→13:27)
[2019-02-05] MEDS: Magnesium 1GM/D5W 100ML PREMIX 100 ML IV SCH ×2 (10:37→11:47)
--- NOTE | 2019-02-05 10:45 | NUR ---
RN NOTE DR SAAVEDRA AT BEDSIDE. REPLACE MG 2GM AND K DUR INCREASE TO 80 MEQ FROM 60 MEQ. ORDER CARRIED OUT, PHARMACY AWARE ABOUT THE CHANGES. PATIENT TOOK K DUR WITH APPLE SAUCE AND IS A LOT CALMER COMPARE TO PAST DAYS. CT DONE, WAS GIVEN ATIVAN PRIOR
--- NOTE | 2019-02-05 11:09 | NUR ---
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 RADIOLOGIST RECOMMENDS FOLLOW UP MRI OR CTA OF THE BRAIN FOR FURTHER EVAL.
[2019-02-05 16:00] VITALS: BP 125/76
--- NOTE | 2019-02-05 16:12 | NUR ---
RN NOTE PATIENT TRYING TO GET OUT OF BED, WAS SEEN BY PHYSICAL THERAPIST. PATIENT STILL UNSTEADY. PLACED A BEDSIDE COMMODE IN HER ROOM FOR EASY BATHROOM ACCESS. PATIENT NEEDS FREQUENT REORIENTATION, VERY CONFUSED BUT NO SCREAMING ANYMORE
--- NOTE | 2019-02-05 16:53 | NUR ---
RN NOTE PATIENT'S COUSIN AT BEDSIDE, JOEL ROMI AND ALONDRA ROMI. FAMILY REQUESTING TO TALK TO MD. CALLED PRINCE, PATIENT'S MOTHER AND THE ONE LISTED IN OUR RECORDS TO ACKNOWLEDGE TO GIVE INFORMATION TO JOEL AND ALONDRA. LEFT A VOICEMAIL. STILL WAITING FOR A CALL BACK ALSO, JOEL IS REQUESTING TO NOT ALLOW THE PATIENT'S COUSIN, NABOR JUNIOR TO VISIT THE PATIENT. AGAIN, WILL DOUBLE CHECK WITH THE MOTHER, PRINCE.
[2019-02-05] MEDS: ACETAMINOPHEN 325 MG TABLET PO PRN (17:13)
--- NOTE | 2019-02-05 18:44 | NUR ---
RN CLOSING NOTE PATIENT IN BED, AWAKE AND VERY CONFUSED. SITTER AT BEDSIDE. ON ROOM AIR, NO COMPLAINS OF ANY PAIN NOR SOB. HAS A BEDSIDE COMMODE. HAS RIGHT HAND #22 WITH HALF NS AT 125 ML/HR. ATIVAN GIVEN FOR ANXIETY. K AND MG HAS BEEN REPLACED. BED LOCKED AND IN LOWEST POSITION. CALL LIGHT WITHIN REACH. WILL ENDORSE TO NOC SHIFT FOR NANCY
--- NOTE | 2019-02-05 19:46 | NUR ---
ICU/AIR INTERCEPT CONTROLLER RECEIVED REPORT FROM DAY SHIFT NURSE. SEE FLOWSHEET FOR ASSESSMENT. THERE IS ONLY ONE SKIN ISSUES THAT PT HAS, WHICH IS ADDRESSED ON FLOWSHEET ALONG WITH THE INTERVENTION. PT IS ON A REGULAR DIET BUT REQUIRES ASST TO EAT. PT APPEARS TO BE LETHARGIC WITH INAPPROPRIATE BEHAVIOR. PT IS ABLE TO TURNED AND REPOSITIONED SELF. WILL MONITOR THIS PT, PT IS CURRENTLY A 1 TO 1
--- NOTE | 2019-02-05 19:59 | NUR ---
RN NOTE TALKED TO PRINCE, PATIENT'S MOM. PER NABOR MORRISON IS OK TO VISIT. JOEL LLANOS, GLENYS TAMAYO AND MEAGHAN OK TO GIVE INFORMATION TO AND OK TO TALK TO DOCTOR FOR UPDATES
[2019-02-05 20:00] VITALS: BP_SYST 107; BP_SYST 137; BP_DIAS 61; BP_DIAS 82
--- NOTE | 2019-02-05 20:38 | NUR ---
PAUL/21 DEALER PT APPEARS TO BE LETHARGIC AND INAPPROPRIATE BEHAVIOR. PT ASST TO CHAIR WITH UNSTEADY GAIT, WHERE SHE WAS GIVEN THE REMOTE FOR THE TV, WHERE SHE BEGAN TO BITE AND LICK THE REMOTE. PT WAS REORT TO TIME AND PLACE, AGAIN BEGAN TO LICK THE TV REMOTE. WHEN ASKED WHY SHE IS DOING THAT SHE SAID SHE DIDN'T KNOW. THEN SHE ASKED FOR POWDER. ASKED WHAT IS POWDER, SHE SAID TO SLEEP. WILL CONTINUE TO MONITOR THIS PT
--- NOTE | 2019-02-05 22:40 | NUR ---
PAUL/MARKETING DATABASE CONSULTANT WHILE CHANGING SHEETS FROM PT URINATED PAST DAPPER, PT SAT IN CHAIR AND EXPRESSED REMORSE, CRYING, SAID THAT "I FUCKED UP." THE CRYING WAS AN APPROPRIATE RESPONDS. PT ASST BACK TO BED, WITH WALKER, SOME UNSTEADY GAIT. NEEDS LOTS OF ORIENTATION. WILL MONITOR THIS PT.
[2019-02-06] MEDS: ACETAMINOPHEN 325 MG TABLET PO PRN (00:15)
--- NOTE | 2019-02-06 00:23 | NUR ---
PAUL/HARBOR MASTER 0010 PT AMBULATED TO BATHROOM, WAS ABLE TO VOID AND HAVE BM, PT WAS ABLE TO RESPOND TO THE PROMPT TO CLEAN HERSELF. PT THEN USED WALKER TO GO BACK TO BED, WITH STANDBY ASST. 0020 PT COMPLAINED ABOUT PAIN TO RIGHT HEEL AND LEG. PAIN RATED AT 6/10. PT WAS GIVEN PO TYLENOL 650MG FOR THIS. PT WAS ABLE TO SWALLOW WITHOUT ANY DIFFICULTY. PT CONTINUES TO BE A 1 TO 1 OR SITTER.
--- NOTE | 2019-02-06 01:45 | NUR ---
PAUL/PLASTICS FITTER DNP RANDI CALLED BACK SAID OK TO GIVEN 1 TAB 5/325 NORCO PO Q 4 HOURS.
--- NOTE | 2019-02-06 03:10 | NUR ---
PAUL/RETORT LOADER [T'S BEEN SLEEPING, JUST PLACED THE ORDER IN THE COMPUTER. PT IS CURRENTLY UP.
[2019-02-06] MEDS: IV 1/2NS 1000 ML 1,000 ML IV PRN (03:43)
[2019-02-06] MEDS: CEFTRIAXONE 1 G in IV D5W 50 ML IV SCH (03:45)
[2019-02-06 04:00] VITALS: BP 121/59
[2019-02-06] MEDS: HYDROCODONE/APAP 5/325MG 1 EACH TABLET PO PRN (04:46)
--- NOTE | 2019-02-06 05:03 | NUR ---
PAUL/PACKING AND FINAL ASSEMBLY SUPERVISOR PT COMPLAINED ABOUT PAIN TO RIGHT HEEL AND LEG, GAVE 1 TAB NORCO FOR THIS PO. PT HAD SOME DIFFICULTY WITH THIS SPITING IT OUT, THEN CRUSHED UP IN APPLESAUCE WHICH SHE TOOK THE MEDICATION. PAIN IS RATED 6/10. WILL MONITOR HER PAIN.
--- NOTE | 2019-02-06 05:35 | NUR ---
PAUL/SOCIETY REPORTER AM LABS ALONG WITH EKG DONE, AWAIT FOR ANY ABNORMAL LABS
--- NOTE | 2019-02-06 06:10 | NUR ---
PAUL/MASS COMMUNICATIONS PROFESSOR PT UP TO BATHROOM WITH ASST, BM X1 . THEN ASST BACK TO BED. PT REFUSED TO KEEP IV AND ARM STRAIGHT. TRIED TO KEEP PT'S ARM STRAIGHT, HOWEVER PT IS NONCOMPLIANT. IVF ARE ON HOLD NOW WILL NOTIFY .
[2019-02-06 06:41] LABS: CALCIUM, SERUM 7.8 mg/dL (8.5-10.1); CREATININE 0.7 mg/dL (0.6-1.3); MAGNESIUM 1.6 mg/dL (1.8-2.4); POTASSIUM 3.2 mmol/L (3.5-5.1)
--- NOTE | 2019-02-06 07:16 | NUR ---
MS RN OPENING NOTE RECEIVED REPORT FROM [facility] SHIFT NURSE. PT ASLEEP IN BED, ON ROOM AIR, SATURATING WELL. IV SITE ON RIGHT HAND G22 INTACT, PATENT, WITH SALINE LOCK- PER FACING BASTER NURSE PT IS REFUSING AND NON COMPLIANT WITH IV FLUIDS. BED IN LOW POSITION, LOCKED, CALL LIGHT WITHIN REACH.
[2019-02-06 08:00] VITALS: BP 156/80
[2019-02-06] MEDS: PANTOPRAZOLE 40 MG VIAL IV SCH (08:07)
--- NOTE | 2019-02-06 11:14 | NUR ---
FACESHEET FAXED TO GPS, CALLED GPS- SCOURER DOCTOR TODAY IS DR. COLE.
--- NOTE | 2019-02-06 11:59 | NUR ---
PT BY BEDSIDE
[2019-02-06] MEDS: POTASSIUM CHLORIDE 20 MEQ TAB.PRT.SR PO SCH ×2 (12:40→13:00)
[2019-02-06] MEDS: Magnesium 1GM/D5W 100ML PREMIX 100 ML IV SCH ×2 (12:40→14:40)
[2019-02-06] MEDS: LORAZEPAM INJ 2 MG/ML VIAL IV PRN (12:51)
[2019-02-06] MEDS ORDERED: IOHEXOL-350 100 ML VIAL IV ONE (13:09)
[2019-02-06] MEDS ORDERED: METOPROLOL TARTRATE INJ 5 MG/5 ML AMPUL ONE ×3 (13:10→13:44)
[2019-02-06] MEDS ORDERED: CT SWABBABLE VALVE TRANS SET 1 EA INFUS.SET MC ONE (13:10)
[2019-02-06] MEDS ORDERED: IV NS 0.9% 250 ML IV ONE (13:10)
[2019-02-06] MEDS: METOPROLOL TARTRATE INJ 5 MG/5 ML AMPUL IVP PRN ×7 (13:15→13:45)
[2019-02-06] MEDS ORDERED: NITROGLYCERIN 0.4 MG/TAB BOTTLE SL ONE (13:30)
[2019-02-06 16:00] VITALS: BP 116/87
--- NOTE | 2019-02-06 16:01 | NUR ---
PT'S FAMILY MEMBERS SPOKE WITH DECALER REGARDING ONLINE MARKETING SPECIALIST. FAMILY WOULD LIKE TO BE CALLED AFTER BUSINESS PLANNER SEE'S PATIENT TOMORROW. CONTACT INFO JOEL ROMI [phone] ([place])
--- NOTE | 2019-02-06 19:30 | NUR ---
MS RN CLOSING NOTE PT IN BED AWAKE, DISORIENTED, CONFUSED, ON ROOM AIR, SATURATING WELL, NO SIGNS OF RESPIRATORY DISTRESS NOTED. IV SITE ON RIGHT AC G18 INFUSING 1/2 NS AT 125ML/HR, NO SIGNS OF INFILTRATION NOTED. PROVIDED SAFETY AND COMFORT TO PT THROUGHOUT SHIFT. ALL DUE MEDS GIVEN. OBTAINED TELEPHONE CONSENT WITH PT'S MOTHER FOR RENETTA SCHEDULED FOR TOMORROW, PLACED INTO PT'S CHART. BED IN LOW POSITION, LOCKED, CALL LIGHT WITHIN REACH. ENDORSED TO NOC SHIFT NURSE.
--- NOTE | 2019-02-06 19:30 | NUR ---
MS RN NOTE PT IN BED AWAKE, DISORIENTED, CONFUSED, WITH INAPPROPRAITE BEHAVIOR. PATIENT ABLE TO INTRODUCE HERSELF BUT STATES SHE IS 19 Y/O PATIENT UNABLE TO FOLLOW COMMANDS ON ROOM AIR, SATURATING WELL, NO SIGNS OF RESPIRATORY DISTRESS NOTED. PATIENT BREATHING ON ROOM AIR W/O DIFFICULTY. SITTER AT BEDSIDE. PATIENT AND SITTER AWARE PATIENT WILL BE NPO FOR RENETTA PROCEDURE AT 0700 02/07/19 IV SITE ON RIGHT AC G18 INFUSING 1/2 NS AT 125ML/HR, NO SIGNS OF INFILTRATION NOTED. PROVIDED SAFETY AND COMFORT TO PT THROUGHOUT SHIFT. OBTAINED TELEPHONE CONSENT WITH PT'S MOTHER FOR RENETTA SCHEDULED FOR TOMORROW, PLACED INTO PT'S CHART. BED IN LOW POSITION, LOCKED, CALL LIGHT WITHIN REACH.
[2019-02-07] VITALS (33 sets, daily range): BP systolic 87–146; BP diastolic 45–92
[2019-02-07] MEDS: CEFTRIAXONE 1 G in IV D5W 50 ML IV SCH (03:27)
--- NOTE | 2019-02-07 04:00 | NUR ---
MS RN NOTE PATIENT DISLODGED IV LINE NEW IV PLACED IN L HAND 20 G
[2019-02-07] MEDS ORDERED: CEFTRIAXONE 1 G VIAL ONE (05:33)
--- NOTE | 2019-02-07 05:45 | NUR ---
MS RN NOTE PATIENT REPORT GIVEN TO TRISH HUMPHREYS FOR TRANSFER TO [facility]
--- NOTE | 2019-02-07 06:05 | NUR ---
MS RN NOTE PATIENT TRANSFERRED TO ROOM 254 WITH PETR CHAMBERS.
--- NOTE | 2019-02-07 06:15 | NUR ---
ICU/RN-RECEIVED PT. FROM MS-1 BY BED PER ACLS PROTOCOL. PT. SCHEDULED FOR RENETTA TODAY BY DR. HE. PT. IS AWAKE, ALERT, CONFUSED. BREATHING SPONTANEOUSLY TO ROOM AIR, SATS-99%. EKG SR. DENIES PAIN AT THIS TIME. PT. HAS A SITTER AT THE BEDSIDE.
--- NOTE | 2019-02-07 06:40 | NUR ---
ICU/RN- ANESTHESIA AND OR CREW HERE .
[2019-02-07] MEDS ORDERED: FENTANYL PF 100MCG/2ML AMPUL ONE (06:41)
[2019-02-07] MEDS ORDERED: ANESTHESIA TRAY IN PYXIS 1 EA TRAY MC ONE (06:47)
--- NOTE | 2019-02-07 06:50 | NUR ---
ICU/RN-DR. HE HERE.
--- NOTE | 2019-02-07 07:00 | NUR ---
ICU/RN: INITIAL NOTES,AM RECEIVED BED SIDE REPORT FROM NIGHT RN. AND ANESTHESIOLOGIST AT BEDSIDE PREPARING FOR SCHEDULED RENETTA. PT ALERT, AWAKE, CONFUSED. ON ROOM AIR, NO DISTRESS NOTED, SINUS ON TELE. PIV IN LEFT HAND C/D/I, NO S/S OF INFILTRATION NOTED. ALL NEEDS WILL BE ATTENDED TO, SAFETY MEASURES TAKEN. PT ON DIAPER. WILL CONTINUE CARE
--- NOTE | 2019-02-07 07:00 | NUR ---
ICU/RN- PT. STATUS UNCHANGED, REPORT GIVEN TO PETR ROLLE.
[2019-02-07 07:11] LABS: CALCIUM, SERUM 7.8 mg/dL (8.5-10.1); CREATININE 0.7 mg/dL (0.6-1.3); MAGNESIUM 1.5 mg/dL (1.8-2.4); POTASSIUM 3.3 mmol/L (3.5-5.1)
--- NOTE | 2019-02-07 07:44 | NUR ---
ICU/RN: RENETTA DONE, VSS, WILL CONTINUE TO MONITOR CLOSELY. PT ON 2LITERS NASAL CANULA, NO DISTRESS, MAINTAINING O2 SAT >95%. WILL CONTINUE TO MONITOR.
[2019-02-07] MEDS: IV 1/2NS 1000 ML 1,000 ML IV PRN (08:11)
[2019-02-07] MEDS ORDERED: Magnesium 1GM/D5W 100ML PREMIX 100 ML IV SCH (09:30)
[2019-02-07] MEDS: PANTOPRAZOLE 40 MG VIAL IV SCH (09:38)
[2019-02-07] MEDS: Magnesium 1GM/D5W 100ML PREMIX 100 ML IV SCH ×2 (09:56→11:38)
[2019-02-07] MEDS ORDERED: Magnesium 1GM/D5W 100ML PREMIX 1 G in PREMIX 1 EA IV SCH (10:00)
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
--- NOTE | 2019-02-07 15:36 | NUR ---
BRENNEN called [facility] and spoke to packing line operator [phone] and discussed the case. Net Front End Developer [phone] informed SW they will dispatch police officers to the hospital.
--- NOTE | 2019-02-07 16:26 | NUR ---
SINTIA Abad Officers Nick (#[id number]) and officer Mati (#[id number]) met with PETR HUTTON in pt's room. SW updated the officers regarding the pt's cousin Joanna's concerns. Officers informed BRENNEN they will call Joanna for further investigation.
--- NOTE | 2019-02-07 16:30 | NUR ---
ICU/RN: FOIL STAMP OPERATOR AT BEDSIDE WITH [employer].Officers Nick (#[id number]) and officer Mati (#[id number]) met with pt and asked questions. SW updated the officers regarding the pt's cousin Joanna's concerns. Officers informed SW they will call Joanna for further investigation. pt was unable to answer any questions.
--- NOTE | 2019-02-07 17:50 | NUR ---
ICU/RN: CALLED CARDIOVASCULAR SURGICAL TECH LING, NEURO CARDIOVASCULAR SURGICAL TECH REGARDING PT CONDITION. INFORMED HER PT IS CONTINUOUSLY BLINKING/ROLLING EYES (NEW FINDING). SHE WILL BE AT BEDSIDE TO EVALUATE PT.
--- NOTE | 2019-02-07 17:59 | NUR ---
WINDMILL MECHANICMORTGAGE LOAN REVIEWER NOTES PT TRANSFER REPORT GIVEN BY PETR SOTO IN ICU.RECEIVED PT TO ROOM 105.PT IS AWAKE BUT CONFUSED,CANNOT ABLE TO ANSWER THE QUESTIONS.ON TELE HR IS 77 WITH NSR.ON ROOM AIR,TOLERATING WELL.NO SOB AND ACUTE DISTRESS NOTED. IV LINE IS ON LEFT HAND G20 WITH IV 1/2 NS WITH 20MEQ KCL RUNNING @ 125ML/HR.SITE IS CLEAN,DRY AND INTACT.NO INFILTRATION NOTED.SKIN ASSESSMENT IS DONE AND NOTED WITH LEFT HEEL DTI PROTECTED WITH MEPLIX.SAFETY IA MAINTAINED AT ALL TIMES.BED ALARM IS ON,CALL LIGHT IS WITHIN REACH.WILL CONTINUE TO MONITOR THE PT CLOSELY.
--- NOTE | 2019-02-07 18:00 | NUR ---
ICU/RN: BEDSIDE REPORT ENDORSED TO TD PETR SHEPPARD. PT TRANSFERRED TO ROOM 105 WITH ACLS DELMAR. ALL BELONGINGS OF PT SENT. PT ON ROOM AIR, NO DISTRESS. SINUS ON TELE. PT REMAINS TO BE CONFUSED, DOES NOT ANSWER QUESTIONS APPROPRIATELY. ENDORSED REPORT FOR NANCY.
--- NOTE | 2019-02-07 18:45 | NUR ---
TOBACCO SCRAP SIFTER NOTES ,NEUROLOGIST ORDERED MRI WITH AND WITHOUT CONTRAST FOR AMS,CONSENT AND MRI QUESTIONER ANSWER GIVEN BY DANIKAABDULKADIR MORRISON,MOTHER.ANOTHER RN WITNESSED THE TELEPHONE CONSENT.
--- NOTE | 2019-02-07 18:55 | NUR ---
ONCOLOGY SOCIAL WORK CLOSING NOTES PT IS LYING ON BED,AWAKE AND CONFUSED.IV LINE IS IN PLACE WITH IV FLUID IS RUNNING.SITE IS CLEAN,DRY AND INTACT.NO SIGNIFICANT CHANGES NOTED IN THE SHIFT.WILL ENDORSE TO DIE CUTTER OPERATOR RN FOR NANCY.
--- NOTE | 2019-02-07 19:45 | NUR ---
PAUL/EXECUTOR OF ESTATE RECEIVED REPORT FROM DAY SHIFT NURSE. SEE FLOWSHEET FOR ASSESSMENT. THERE IS A FEW SKIN ISSUES THAT PT HAS, WHICH IS ADDRESSED ON FLOWSHEET ALONG WITH THE INTERVENTION. PT IS ON A REGULAR DIET BUT REQUIRES ASST TO EAT. PT APPEARS TO BE LETHARGIC WITH INAPPROPRIATE BEHAVIOR, WITH SEIZURE PRECAUTIONS. PT IS ABLE TO TURNED AND REPOSITIONED SELF. WILL MONITOR THIS PT.
--- NOTE | 2019-02-07 19:55 | NUR ---
PAUL/WICKER WORKER PT WAS SATURATED WITH URINE, FROM HAVING A DIAPER. AND LARGE LOOSE BM. PT WAS CLEANED AND REPOSITIONED FOR COMFORT AND CARE. WILL MONITOR THIS PT.
--- NOTE | 2019-02-07 20:10 | NUR ---
PAUL/DEVULCANIZER OPERATOR PT IS TRYING TO GET OUT OF BED, PT HAD AN ORDER FOR 1 TO 1 OR SITTER. ORDER WAS REPLACED WITH CHARGE NURSE AWARE AND AVIATION CONSULTANT AWARE. NURSE AND PUMPER GAUGER APPRENTICE CURRENTLY OUTSIDE ROOM.
[2019-02-07] MEDS: CEFTRIAXONE 2 G in IV D5W 100 ML IV SCH (22:20)
--- NOTE | 2019-02-07 23:01 | NUR ---
ICU/LEGGER PRESS OPERATOR RESTRAINTS WERE PLACED ON PT DUE TO UNABLE TO FIND SITTER.
[2019-02-08] VITALS: BP 131/79
--- NOTE | 2019-02-08 00:20 | NUR ---
PAUL/POKER MANAGER NEW IV HEPLOCK TO THE LEFT IJ 20G. WILL CONTINUE TO MONITOR THIS PT.
--- NOTE | 2019-02-08 03:33 | NUR ---
PAUL/EPIC INTERFACE ANALYST PT WAS GIVEN AM CARE, ALONG WITH ORAL CARE. PT ISN'T TOLERATED THIS WELL AT ALL, PT REMAINS VERY AGITATED. PT REMAINS ON ROOM AIR WITH SATURATION AT 98-100%. PT WAS TUNED AND REPOSITIONED FOR COMFORT AND CARE. WILL CONTINUE TO MONITOR THIS PT. NO ACUTE DISTRESS SEEN.
[2019-02-08 04:00] VITALS: BP 119/81
--- NOTE | 2019-02-08 07:00 | NUR ---
PAUL/TRANSPORTATION LEAD AM LABS WERE DRAWN
--- NOTE | 2019-02-08 07:23 | NUR ---
TEXTED DR. SOTO FOR MRI APPROVAL.
--- NOTE | 2019-02-08 07:42 | NUR ---
FIRM ADMINISTRATOR OPENING NOTES RECEIVED REPORT FROM PM NURSE.PT IN BED.AWAKE AND CONFUSED.SITTER AT BEDSIDE WITH RESTRAINTS.AGITATED.IV LINE IS IN PLACE WITH IV FLUID ONGOING PER ORDER.SITE IS CLEAN,DRY AND INTACT.ON TELE MONITOR SR.BED ISS LOW AND IN LOCKED POSITION.CALL LIGHT IN REACH.WILL CONTINUE TO MONITOR.
[2019-02-08 07:58] LABS: CREATININE 0.7 mg/dL (0.6-1.3); MAGNESIUM 1.6 mg/dL (1.8-2.4); POTASSIUM 3.7 mmol/L (3.5-5.1)
[2019-02-08 08:00] VITALS: BP 148/83
[2019-02-08] MEDS: PANTOPRAZOLE 40 MG VIAL IV SCH (08:48)
--- NOTE | 2019-02-08 09:44 | NUR ---
COUNTY PROGRAM TECHNICIAN NOTE SEEN BY ,UPDATED ABOUT PATIENT CONDITION WITH LABS.GOT NEW ORDER FOR MAGNESIUM IV 2G AND OK TO GIVE ATIVAN BEFORE MRI.WILL CONTINUE TO MONITOR.
[2019-02-08] MEDS ORDERED: Magnesium 1GM/D5W 100ML PREMIX PIGGYBACK IV ONE (10:00)
[2019-02-08] MEDS: Magnesium 1GM/D5W 100ML PREMIX 100 ML IV SCH ×2 (10:40→12:02)
[2019-02-08 12:00] VITALS: BP 128/83
[2019-02-08] MEDS: LORAZEPAM INJ 2 MG/ML VIAL IV PRN ×4 (13:58→22:55)
--- NOTE | 2019-02-08 15:35 | NUR ---
SHOPPING CENTRE MANAGER NOTE PATIENT TAKEN TO MRI.PRN ATIVAN GIVEN.PATIENT UNABLE TO STAY STILL.KEEP ON MOVING.UNABLE TO GET CLEAR MRI IMAGES.CALL MADE TO ,UPDATED ABOUT PATIENT CONDITION.MADE AWARE ABOUT PATIENT WAS NOT COOPERATIVE WHILE TAKING MRI.HER ABDOMEN BLOATED.GOT NEW ORDER FOR [place].WILL CONTINUE TO MONITOR.
[2019-02-08] MEDS: HYDROCODONE/APAP 5/325MG 1 EACH TABLET PO PRN (15:53)
[2019-02-08 16:00] VITALS: BP 124/67
[2019-02-08] MEDS ORDERED: MAG HYDROX/AL HYDROX/SIMETH 30 ML UDC PO PRN (16:00)
--- NOTE | 2019-02-08 17:06 | NUR ---
VALIDATION ANALYST NOTE WOUND CRAE CONSULT ORDERED,UNABLE TO TAKE PIC.PATIENT IS NOT COOPERATIVE.ATTEMPTED MULTIPLE TIME.PATIENT AGITATED.TRYING TO GET OUT OF BED.PRN ATIVAN GIVEN.FAMILY AT BEDSIDE.
--- NOTE | 2019-02-08 18:57 | NUR ---
WEB CONTENT DEVELOPER CLOSING NOTES PT IN BED.AGITATED.SITTER AND FAMILY AT BEDSIDE.STILL BITTING AND PULLING ALL LINEN AND TUBES . WITH RESTRAINTS.PRN IV MEDS GIVEN.IV LINE IS IN PLACE WITH IV FLUID ONGOING PER ORDER.SITE IS CLEAN,DRY AND INTACT.ON TELE MONITOR SR.BED IS LOW AND IN LOCKED POSITION.CALL LIGHT IN REACH.WILL ENDORSE TO PM NURSE FOR NANCY.
[2019-02-08 20:00] VITALS: BP 125/76
--- NOTE | 2019-02-08 20:11 | NUR ---
RN NOTE RECEIVED PATIENT FROM AN RN, PATIENT IS EXTREMELY AGITATED, BITING, SCREAMING INAPPROPRIATE WORDS, SINUS TACHYCARDIA 134 BEATS/MINUTE, FAMILY IS BY BEDSIDE, CALLED DOCTOR JOHANNY, DOCTOR KELSEY GAVE AN ORDER FOR HALDOL 2.5 MG EVERY 4 HOURS PO FOR MODERATE AGITATION AND COGENTIN 0.5MG EVERY 4 HOURS PRN PO FOR MODERATE AGITATION, HALDOL 5MG IM QD PRN FOR SEVERE AGITATION, ALL ORDERS READ BACK X2 AND TRANSCRIBED, CHARGE NURSE IS AWARE
--- NOTE | 2019-02-08 20:15 | NUR ---
TELE/RN NOTES Patient received in bed, agitated, family at bed side, No S/S of acute distress noted, respiration even and unlabored. No SOB noted. Patient alert and oriented x1, moving trying to get out of the restraints, restraints in place as ordered. IV sites with no S/S of infection infiltration, flushing well, running with fluid as ordered. Patient on tele monitoring with sinus tachy with rate 111. Safety maintained, bed at the lowest locked position, Will continue to monitor patient as per plan of care.
--- NOTE | 2019-02-08 20:17 | NUR ---
RN NOTE REPORT GIVEN TO PRIMARY NURSE JHON HUMPHREYS
[2019-02-08] MEDS ORDERED: HALOPERIDOL 5 MG TABLET PO PRN ×2 (20:30→21:30)
[2019-02-08] MEDS ORDERED: HALOPERIDOL LACTATE INJ 5 MG/ML VIAL IM PRN (20:30)
[2019-02-08] MEDS ORDERED: BENZTROPINE MESYLATE (1 MG) 1 MG TABLET PO PRN (20:30)
--- NOTE | 2019-02-08 21:00 | NUR ---
PATIENT NOTED WITH LEFT WRIST SKIN TEAR, DR TRISTIN BRYAN MADE AWARE WITH NEW ORDER FOR WOUND CONSULT. CHARGE NURSE AWARE.
[2019-02-08] MEDS: ACETAMINOPHEN 325 MG TABLET PO PRN (21:18)
--- NOTE | 2019-02-08 21:25 | NUR ---
Relayed to Dr. dominguez that patient VTE is 5, denies to put patient on any anticoagulants at this time, will continue to monitor
--- NOTE | 2019-02-08 22:56 | NUR ---
PRN ATIVAN GIVEN AT 2144, FORGOT TO SCAN, PATIENT STILL HAVING EPISODES OF AGITATION, MOVING, TRYING TO PULL LINES
--- NOTE | 2019-02-08 22:58 | NUR ---
DR COLE CALLED BACK AT THIS TIME, RELAYED PATIENT CURRENT CONDITION WITH NEW ORDER TO STOP GIVING ANY MORE ATIVAN TONIGHT AND GIVE PATIENT ONE MORE DOSE OF HALOPERIDOL 2.5MG PO ONE TIME ONLY NOW. ORDER READ BACK, NOTED
[2019-02-08] MEDS ORDERED: HALOPERIDOL 5 MG TABLET PO STA (23:07)
[2019-02-08] MEDS: CEFTRIAXONE 2 G in IV D5W 100 ML IV SCH (23:12)
[2019-02-09] VITALS: BP 123/78
[2019-02-09 04:00] VITALS: BP 123/78
--- NOTE | 2019-02-09 06:12 | NUR ---
patient noted severely agitated, trying to pull line, kicking, biting and trying to get out of the bed, re-orientation provided, tried to calm patient down, ineffective, patient continue with behavior, PRN haloperidol IM given as ordered, will continue to monitor. safety maintained, bed at the lowest locked position. sitter at bed side
--- NOTE | 2019-02-09 07:05 | NUR ---
HOME CARE COORDINATOR OPENING NOTES RECEIVED PT LYING ON BED,RESTLESS AND TRYING TO GET OUT FROM THE BED.ON TELE HR IS 93 WITH NSR.ON ROOM AIR,TOLERATING WELL.NO SOB AND ACUTE DISTRESS NOTED.SITTER IS AT BEDSIDE.IV LINE IS ON RIGHT AC G22,SL.LEFT EJ G20 WITH 1/2 NS WITH POTASSIUM IS RUNNING @125ML/HR IS RUNNING.SITE IS CLEAN,DRY AND INTACT.NO INFILTRATION NOTED.SAFETY IS MAINTAINED AT ALL TIMES.BED IS IN LOW POSITION AND LOCKED.CALL LIGHT IS WITHIN REACH.WILL CONTINUE TO MONITOR THE PT CLOSELY.
--- NOTE | 2019-02-09 07:25 | NUR ---
PATIENT REMAINED IN BED, STILL NOTED WITH EPISODES OF AGITATION. NO ACUTE DISTRESS NOTED, BREATHING EVEN AND UNLABORED. WILL ENDORSE TO AM SHIFT NURSE FOR NANCY.
--- NOTE | 2019-02-09 08:00 | NUR ---
SENIOR LEAD JAVA DEVELOPER NOTES PT IS RESTLESS AND REFUSED TO TAKE VITAL SIGNS.
[2019-02-09] MEDS: PANTOPRAZOLE 40 MG VIAL IV SCH (10:01)
[2019-02-09 12:00] VITALS: BP 118/78
[2019-02-09] MEDS: LORAZEPAM INJ 2 MG/ML VIAL IV PRN ×2 (12:07→19:23)
[2019-02-09] MEDS: HALOPERIDOL 5 MG TABLET PO PRN (14:16)
[2019-02-09 16:00] VITALS: BP 115/61
--- NOTE | 2019-02-09 19:40 | NUR ---
MS RN NOTES, PATIENT IN BED AT THIS TIME, RESTLESSNESS TRYING TO GET UP FROM BED, BUT PATIENT WANTED TO USE RESTROOM, AFTER THAT PATIENT CALM, SITTER AT BEDSIDE, BREATHING EVEN AND UNLABORED, NO SOB/ACUTE DISTRESS NOTED AT THIS TIME, RIGHT AC #22 WITH HALF NS WITH 20MEQ KCL AT 125 ML/HR, SAFETY MEASURES IN PLACE, BED LOCKED AND IN LOWEST POSITION, SRX4 PADDED S/R FOR SEIZURE PRECAUTIONS, WILL CONTINUE TO MONITOR CLOSELY. Addendum: 02/10/19 at 2227 by PERLA GARVIN RN PAUL HUMPHREYS NOTES,
[2019-02-09 20:00] VITALS: BP 112/68
--- NOTE | 2019-02-09 20:03 | NUR ---
MANAGER COMMUNICATION CLOSING NOTES PT IS STILL HAS RESTLESS AND AGITATED.RESPIRATION IS EVEN AND NONLABORED.NO SIGNIFICANT CHANGES NOTED IN THE SHIFT.ENDORSED TO BARREL COOPER RN FOR NANCY.
[2019-02-09] MEDS: OLANZAPINE 5 MG/TAB.RAPDIS PO SCH (21:29)
[2019-02-10] VITALS: BP 119/72
[2019-02-10 04:00] VITALS: BP 112/66
[2019-02-10 06:50] LABS: BASOPHILS # (AUTO) 0.1 /CMM (0.0-0.2); BASOPHILS % (AUTO) 0.3 % (0.0-2.0); HEMATOCRIT 34 % (33-45); HEMOGLOBIN 11.1 g/dL (11.5-14.8); LYMPHOCYTES # (AUTO) 2.5 /CMM (0.8-4.8); LYMPHOCYTES % (AUTO) 14.3 % (20.0-44.0); MEAN CORPUSCULAR HGB CONC 33 g/dl (31.0-36.0); MEAN CORPUSCULAR VOLUME 91 fL (82-100); MONOCYTES # (AUTO) 1.5 /CMM (0.1-1.30); MONOCYTES % (AUTO) 8.7 % (2.0-12.0); NEUTROPHILS # (AUTO) 13.2 /CMM (1.8-8.9); NEUTROPHILS % (AUTO) 75.7 % (43.0-81.0); PLATELET COUNT (AUTO) 468 /CMM (150-450); WHITE BLOOD COUNT (AUTO) 17.5 K/uL (4.3-11.0)
--- NOTE | 2019-02-10 07:00 | NUR ---
RN NOTES, PATIENT IN STABLE CONDITION DURING THE NIGHT, NO EPISODES OF AGITATION/RESTLESSNESS, ENDORSED FOR CONTINUITY OF CARE TO PETR MONTIEL.
[2019-02-10 07:18] LABS: CALCIUM, SERUM 8.3 mg/dL (8.5-10.1); CREATININE 0.7 mg/dL (0.6-1.3); MAGNESIUM 1.5 mg/dL (1.8-2.4); PHOSPHORUS 4.1 mg/dL (2.5-4.9); POTASSIUM 4.3 mmol/L (3.5-5.1)
--- NOTE | 2019-02-10 07:45 | NUR ---
RN NOTE: RECEIVED PATIENT IN BED DROWSY, BUT ABLE TO SPONTANEOUSLY OPEN HER EYES. 1:1 SITTER WAS OBSERVED AT THE BEDSIDE. RESPIRATION EVEN AND UNLABORED SATURATING 97% ON ROOM AIR. NOT ON ANY FORM OF DISTRESS. AFEBRILE. SKIN WARM TO TOUCH. HOB ELEVATED. NO BEHAVIORAL ISSUES NOTED AT THIS TIME. (R) AC IV SITE WAS NOTED INTACT AND PATENT INFUSING 1/2 NS + KCL 40 MEQ @125ML/HR. BED ALARMED AND LOCKED AT ALL TIMES. BED ON LOWEST POSITION AT ALL TIMES. CALL LIGHT WITHIN REACH. NEEDS ANTICIPATED. BREAKFAST TRAY WAS SERVED AND SITTER FED THE PATIENT. ASPIRATION AND SEIZURE PRECAUTION OBSERVED.
[2019-02-10 08:00] VITALS: BP 112/67
[2019-02-10] MEDS: PANTOPRAZOLE 40 MG VIAL IV SCH (08:37)
[2019-02-10] MEDS: Magnesium 1GM/D5W 100ML PREMIX 100 ML IV SCH ×2 (09:48→10:55)
--- NOTE | 2019-02-10 11:01 | NUR ---
RN NOTE: DR. COYNE WAS INFORMED ABOUT THE PATIENT'S POTASSIUM OF 4.3 AND THE CURRENT IVF WAS 1/2 NS + KCL 40 MEQ. PER , DC THE CURRENT IVF AND CHANGE TO 1/2 NS @125ML/HR. ORDER NOTED AND CARRIED OUT.
--- NOTE | 2019-02-10 11:35 | NUR ---
RN NOTE: HAND-OFF REPORT TO PAUL MEJIAS RN FOR CONTINUITY OF CARE. PATIENT REMAINED ON A 1:1 SITTER.
[2019-02-10] MEDS: LORAZEPAM INJ 2 MG/ML VIAL IV PRN (11:38)
--- NOTE | 2019-02-10 11:45 | NUR ---
CALENDER MACHINE OPERATOR NOTES RECEIVED PT FROM DINESH HUMPHREYS. PT IS A/OX 2 CONFUSED. PT IS WITH 1:1 SITTER AND SCHEDULED FOR MRI WITHOUT CONTRAST.
[2019-02-10 12:00] VITALS: BP 113/78
--- NOTE | 2019-02-10 12:00 | NUR ---
GRANTS ADMINISTRATOR NOTES PT LEFT FOR MRI PROCEDURE.
--- NOTE | 2019-02-10 12:15 | NUR ---
TOOL MACHINE SET UP OPERATOR NOTES PT IS BACK FROM MRI PROCEDURE. SHE IS IN STABLE CONDITION.
[2019-02-10 16:00] VITALS: BP 118/73
--- NOTE | 2019-02-10 18:53 | NUR ---
tele Addendum: 02/10/19 at 1854 by RANDELL CAMPBELL RN IGNORE THE NOTE
--- NOTE | 2019-02-10 18:56 | NUR ---
TIE SAWYER NOTES PATIENT MOTHER CALLED DINESH AND INFORMED THAT HER DAUGHTER`S EYE CONTACT LENSES ARE MISSING THERE IS A POSSIBILITY THAT PT IS WEARING THEM. TRIED TO REMOVE THE CONTACT LENSES WITH STERILE TECHNIQUE AND IT WAS UNSUCCESSFUL. WE ENCOURAGED PT TO REMOVE IT BY HERSELF BUT SHE IS CONFUSED AND NOT ABLE TO PERFORM IT. NO REDNESS AND DISCHARGED NOTED FROM EYES.
--- NOTE | 2019-02-10 19:50 | NUR ---
BURRER HAND NOTES, PATIENT IN BED AT THIS TIME, BREATHING EVEN AND UNLABORED, NO SOB/ACUTE DISTRESS NOTED, NO C/O PAIN OR DISCOMFORT, NO FACIAL GRIMACING NOTED, RIGHT AC #22 WITH HALF NS AT 125 ML/HR INFUSING WELL AND PATIENT TOLERATED WELL, NO S/S OF INFILTRATION NOTED, SAFETY MEASURES IN PLACE, BED LOCKED AND IN LOWEST POSITION, SITTER AT BEDSIDE, SRX4 PADDED S/R FOR SEIZURE PRECAUTIONS, WILL CONTINUE TO MONITOR CLOSELY.
[2019-02-10 20:00] VITALS: BP 113/71
[2019-02-10] MEDS: IV 1/2NS 1000 ML 1,000 ML IV PRN (20:16)
[2019-02-10] MEDS: OLANZAPINE 5 MG/TAB.RAPDIS PO SCH (21:00)
[2019-02-11] VITALS: BP 103/73
[2019-02-11 04:00] VITALS: BP 113/69
[2019-02-11] MEDS: IV 1/2NS 1000 ML 1,000 ML IV PRN ×2 (04:42→20:29)
[2019-02-11 06:29] LABS: BASOPHILS % (AUTO) 0.2 % (0.0-2.0); EOSINOPHILS % (AUTO) 0.9 % (0.0-6.0); HEMATOCRIT 34 % (33-45); HEMOGLOBIN 10.9 g/dL (11.5-14.8); LYMPHOCYTES # (AUTO) 1.7 /CMM (0.8-4.8); LYMPHOCYTES % (AUTO) 10.4 % (20.0-44.0); MEAN CORPUSCULAR HGB CONC 33 g/dl (31.0-36.0); MEAN CORPUSCULAR VOLUME 91 fL (82-100); MONOCYTES # (AUTO) 1.5 /CMM (0.1-1.30); MONOCYTES % (AUTO) 9.1 % (2.0-12.0); NEUTROPHILS # (AUTO) 13.1 /CMM (1.8-8.9); NEUTROPHILS % (AUTO) 79.4 % (43.0-81.0); PLATELET COUNT (AUTO) 517 /CMM (150-450); RED BLOOD CELL COUNT(AUTO) 3.68 MIL/uL (4.0-5.2); WHITE BLOOD COUNT (AUTO) 16.5 K/uL (4.3-11.0)
[2019-02-11 06:44] LABS: CALCIUM, SERUM 8.3 mg/dL (8.5-10.1); CREATININE 0.7 mg/dL (0.6-1.3); MAGNESIUM 1.7 mg/dL (1.8-2.4); PHOSPHORUS 4.2 mg/dL (2.5-4.9); POTASSIUM 4.1 mmol/L (3.5-5.1)
--- NOTE | 2019-02-11 06:48 | NUR ---
RN NOTES, PATIENT REMAINS STABLE , BREATHING EVEN AND UNLABORED, WITH STABLE VS, NO C/O PAIN OR DISCOMFORT, SITTER AT BEDSIDE, NO EPISODES OF AGITATION OR RESTLESSNESS, , NO SIGNIFICANT CHANGE OF CONDITION DURING THE NIGHT, IV SITE IN RIGHT AC 22G, CONT ON IV HYDRATION, NO S/S OF INFILTRATION, WILL ENDORSED CONTINUITY OF CARE TO ONCOMING NURSE.
--- NOTE | 2019-02-11 07:37 | NUR ---
RN OPENING NOTES RECEIVED PATIENT SLEEPING IN BED COMFORTABLY AT THIS TIME, EASILY AROUSED. SHE IS CONFUSED, VERBAL, AMBULATORY BUT ON BEDREST, SITTER AT BEDSIDE. SHE IS ON RA, TOLERATING WELL, SHOWS NO S/SX OF RESP DISTRESS OR SOB. SKIN IS NOT INTACT, DIAPER RASH IS PRESENT, L WRIST SKIN TEAR, AND R HEEL DTI. SHE IS ON A SOFT, CHOPPED, DIET. SHE HAS A RAC 22 G INFUSING NS AT 125 ML/HR. SAFETY MEASURES HAVE BEEN IMPLEMENTED, CALL LIGHT IS WITHIN REACH, BED IS IN LOWEST AND LOCKED POSITION, SIDE RAILS ARE UP X2, WILL CONTINUE TO MONITOR FOR ANY CHANGES.
[2019-02-11 08:00] VITALS: BP 97/60
--- NOTE | 2019-02-11 08:27 | NUR ---
WOUND CARE CONSULT: PT PRESENTS WITH RT HEEL INTACT DEEP TISSUE INJURY WHICH WAS NOTED TO BE PRESENT ON ADMISSION. PT ALSO NOTED TO HAVE RASH TO INNER BUTTOCKS/PERINEAL AREAS. PT HAS BEEN INCONTINENT AT TIMES. RECOMMENDATIONS MADE FOR SKIN PROTECTION AND CARE. PER NURSING STAFF, PT HAS BEEN USING BEDSIDE COMMODE AT TIMES WITH ASSISTANCE. SITTER AT BEDSIDE. DISCUSSED WITH NURSING STAFF. WILL SEE PRN. CHOI IN AGREEMENT WITH PLAN OF CARE. Addendum: 02/11/19 at 0830 by ZANDRA ALMAZAN WNDNU Amended: Links added.
--- NOTE | 2019-02-11 08:30 | NUR ---
REPORT GIVEN TO PETR JEAN BAPTISTE.
[2019-02-11] MEDS: PANTOPRAZOLE 40 MG VIAL IV SCH (09:00)
[2019-02-11] MEDS: CLOTRIMAZOLE 1% 15 GM TUBE TP SCH ×2 (09:00→17:29)
--- NOTE | 2019-02-11 10:02 | NUR ---
SW received a call from pt's mother requesting to set up with a meeting with SW. Meeting has been scheduled for tomorrow 02/12 at 1:30PM.
[2019-02-11] MEDS: Magnesium 1GM/D5W 100ML PREMIX 100 ML IV SCH ×2 (10:51→12:06)
[2019-02-11 12:00] VITALS: BP 101/68
--- NOTE | 2019-02-11 14:54 | NUR ---
BRENNEN received a call from pt's sister Teresa Yan from [place] . Teresa is planning to come to [facility] on Sunday to see her sister. She is concerned regarding pt. going home to live with their mother in [place]. Teresa stated, she is not sure if pt's mother will be able to care for her. BRENNEN informed Teresa she will contact her tomorrow at 1:30PM with mother present to discuss plan of care.
[2019-02-11] MEDS: ASPIRIN 81 MG TAB.CHEW PO SCH (15:19)
[2019-02-11 16:00] VITALS: BP 93/56
--- NOTE | 2019-02-11 16:04 | NUR ---
RN NOTE SPOKE WITH PT'S MOTHER PRINCE, REQUESTING TO SPEAK DR OAKES. PAGED HIS OFFICE AND LEFT VOICE MAIL TO CALL RN BACK. NO RESPONSE YET.
[2019-02-11 20:00] VITALS: BP 111/74
[2019-02-11] MEDS: OLANZAPINE 5 MG/TAB.RAPDIS PO SCH (21:11)
[2019-02-12] VITALS: BP 110/72
[2019-02-12 04:00] VITALS: BP 102/66
[2019-02-12] MEDS: IV 1/2NS 1000 ML 1,000 ML IV PRN ×2 (05:36→18:28)
[2019-02-12] MEDS: ACETAMINOPHEN 325 MG TABLET PO PRN (06:54)
--- NOTE | 2019-02-12 07:00 | NUR ---
RN NOTES, PATIENT REMAINS STABLE , BREATHING EVEN AND UNLABORED, WITH STABLE VS, NO C/O PAIN OR DISCOMFORT, SITTER AT BEDSIDE, NO EPISODES OF AGITATION OR RESTLESSNESS, NO SIGNIFICANT CHANGE OF CONDITION DURING THE NIGHT, IV SITE IN LEFT FA 18G, CONT ON IV HYDRATION, NO S/S OF INFILTRATION, CONTINUE 1:1 SITTER, WILL ENDORSED CONTINUITY OF CARE TO ONCOMING NURSE.
[2019-02-12 07:04] LABS: BASOPHILS % (AUTO) 0.5 % (0.0-2.0); EOSINOPHILS % (AUTO) 1.3 % (0.0-6.0); HEMATOCRIT 35 % (33-45); HEMOGLOBIN 11.5 g/dL (11.5-14.8); LYMPHOCYTES # (AUTO) 1.9 /CMM (0.8-4.8); LYMPHOCYTES % (AUTO) 17.4 % (20.0-44.0); MEAN CORPUSCULAR HGB CONC 33 g/dl (31.0-36.0); MEAN CORPUSCULAR VOLUME 90 fL (82-100); MONOCYTES # (AUTO) 1.2 /CMM (0.1-1.30); MONOCYTES % (AUTO) 10.7 % (2.0-12.0); NEUTROPHILS # (AUTO) 7.6 /CMM (1.8-8.9); NEUTROPHILS % (AUTO) 70.1 % (43.0-81.0); PLATELET COUNT (AUTO) 540 /CMM (150-450); RED BLOOD CELL COUNT(AUTO) 3.85 MIL/uL (4.0-5.2); WHITE BLOOD COUNT (AUTO) 10.8 K/uL (4.3-11.0)
--- NOTE | 2019-02-12 07:15 | NUR ---
RN OPENING NOTES RECEIVED REPORT FROM SKI LIFT ATTENDANT RN. PT IS AWAKE AND WHEN ASKED HOW SHE IS FEELING SHE STATES "FOZIA" AND THAT SHE IS A "SENORITA". PT NOT RESPODING CORRECTLY TO QUESTIONS WAS TOLD THIS IS HOW SHE HAS BEEN. SHE DID FINELY STATE SHE FELT FINE. PT HAS SITTER PRESENT AT BEDSIDE. PT HAS A L HAND GAUGE 20 RUNNING 1/2 NS @125 ML/HR. PT IS BREATHING EVEN UNLABORED. WILL CONTINUE TO MONITOR.
[2019-02-12 07:31] LABS: CALCIUM, SERUM 8.5 mg/dL (8.5-10.1); CREATININE 0.7 mg/dL (0.6-1.3); MAGNESIUM 1.8 mg/dL (1.8-2.4); PHOSPHORUS 4.2 mg/dL (2.5-4.9); POTASSIUM 4.3 mmol/L (3.5-5.1)
[2019-02-12 08:00] VITALS: BP 116/74
[2019-02-12] MEDS: ASPIRIN 81 MG TAB.CHEW PO SCH (09:14)
[2019-02-12] MEDS: CLOTRIMAZOLE 1% 15 GM TUBE TP SCH ×2 (09:15→17:46)
[2019-02-12] MEDS: PANTOPRAZOLE 40 MG VIAL IV SCH (09:15)
--- NOTE | 2019-02-12 13:30 | NUR ---
BRENNEN and lining caser Celia/Hernán met with pt's mother Rebecca and dad Vishnu for a family conference in regards to discharge plan. Per pt's mother Rebecca, she is not able to care for the pt. at this time, since pt. is unable to recognize her and communicate. Pt's sister Teresa and other family members are coming to visit the pt. this Sunday. Pt's mother was emotional regarding pt's medical condition. SW provided active listening and emotional support to her. Pt. has out of state insurance and informed SW that they believe Shazia had applied for Medi-brandin in [place]. BRENNEN informed her she will contact insurance liaison Bernadine Garcia and have her give them a call.
--- NOTE | 2019-02-12 14:31 | NUR ---
family conference done with family and cm,per mother she cannot take care of her ,dr. sparrow ordered PT,DISCHARGE PENDING.
[2019-02-12 16:00] VITALS: BP 117/70
--- NOTE | 2019-02-12 19:03 | NUR ---
RN CLOSING NOTES PT IS ASLEEP IN BED WITH MOTHER AND FATHER AT BEDSIDE. MOTHER CONCERNED ABOUT CONTACTS IN EYES PT NOT COMPLIANT AND STILL SHUTTING EYES AND NOT OBEYING COMMANDS. WILL HAVE TOOL GRINDING MACHINE OPERATOR CONTINUE TO MONITOR FOR NANCY. BED IS LOCKED AND IN LOWEST POSITION WITH CALL LIGHT IN REACH.
[2019-02-12 20:00] VITALS: BP 123/75
[2019-02-12] MEDS: HYDROCODONE/APAP 5/325MG 1 EACH TABLET PO PRN (23:16)
[2019-02-13 04:00] VITALS: BP 120/72
[2019-02-13] MEDS: IV 1/2NS 1000 ML 1,000 ML IV PRN ×2 (04:28→17:10)
--- NOTE | 2019-02-13 07:10 | NUR ---
MS RN OPENING NOTES. RECEIVED PT LYING ON BED.ALERT/ORIENTED X1 WITH AGITATION.SITTER IS AT BEDSIDE BECAUSE O0F THE SUICIDAL RISK.IV LINE PRESENT .SITE IS CLEAN,DRY AND INTACT.NO INFILTRATION NOTED.BED IS IN LOW POSITION AND LOCKED.CALL LIGHT IS WITHIN REACH.WILL CONTINUE TO MONITOR THE PT CLOSELY.
--- NOTE | 2019-02-13 08:00 | NUR ---
MS RN NOTES PT REPORT GIVEN TO PETR WINTERS IN [place].
--- NOTE | 2019-02-13 08:00 | NUR ---
MS RN NOTE RECEIVED PATIENT IN BED, SLEEPING BUR ABUSABLE TO VERBAL AND TACTILE STIMULI ,NO SOB NOTRF AT THIS TIME NO NC\O PAIN OR DISCOMFORT , BED IN LOWEST AND LOCKED POSITION , CALL LIGHT WITHIN REACH, SITTER AT BEDSIDE , WILL CONT TO MONITOR CLOSELY
--- NOTE | 2019-02-13 09:00 | NUR ---
MS RN NOTE SEEN BYPT ABLE TO AMBULATE WITH STAND BY ASSISTANCE
[2019-02-13] MEDS: ASPIRIN 81 MG TAB.CHEW PO SCH (09:51)
[2019-02-13] MEDS: PANTOPRAZOLE 40 MG VIAL IV SCH (09:51)
[2019-02-13] MEDS: CLOTRIMAZOLE 1% 15 GM TUBE TP SCH ×2 (09:57→16:48)
--- NOTE | 2019-02-13 13:00 | NUR ---
MS RN NOTE SEEN BY DR THEODORE WITH CONT CURRENT PLAN OF CARE
--- NOTE | 2019-02-13 14:22 | NUR ---
BRENNEN and case management manager Lluvia called pt's [id number] Fran to discuss discharge plan. Per Fran, he wanted to know what are pt's options. BRENNEN and Lluvia explained to him that pt. has limited options since she is from [place] and has no insurance. BRENNEN informed Fran that [facility] insurance liaison was referred to pt's mom to apply for Medi-brandin and they did that this morning via phone. road production general manager Lluvia informed Fran that pt. might be able to go to Mara's board and care once she has been evaluated by Mara. Mara also has a board and care in [facility], where the mother lives. However, it is private pay. Fran requested for Mara to contact him. Lluvia to give Fran Terry's contact number. Mara to evaluate the pt. tomorrow. Fran informed Lex he is coming to [place] tomorrow.
--- NOTE | 2019-02-13 15:00 | NUR ---
MS RN NOTE SEEN LITHOGRAPHIC PROOFER APPRENTICE FOR D\C PLANNING
--- NOTE | 2019-02-13 16:48 | NUR ---
MS RN NOTE UP ON CHAIR, ABLE TO SIT WELL , SITTER AT BEDSIDE
--- NOTE | 2019-02-13 18:30 | NUR ---
ELECTRICIAN MARINE NOTE STILL REFUSED DINNER,ENCOURAGE X3 , SITTER AT BEDSIDE
[2019-02-13 20:00] VITALS: BP 118/69
[2019-02-13] MEDS: OLANZAPINE 5 MG/TAB.RAPDIS PO SCH (21:27)
[2019-02-14 04:00] VITALS: BP 120/72
--- NOTE | 2019-02-14 07:30 | NUR ---
RN MS OPENING NOTES Patient received on room air, no sob noted, remains a/o x2 and with 1:1 sitter at all times. Patient remains with L hand 20g and 1/2 NS @! 125 mL per hour. No s/s of pain at this time and is resting comfortably on her bed. Bed at the lowest setting, call light within reach, side rails up x2.
[2019-02-14] MEDS: ASPIRIN 81 MG TAB.CHEW PO SCH (08:29)
[2019-02-14] MEDS: PANTOPRAZOLE 40 MG VIAL IV SCH (08:29)
[2019-02-14] MEDS: CLOTRIMAZOLE 1% 15 GM TUBE TP SCH ×2 (08:30→16:21)
[2019-02-14] MEDS: IV 1/2NS 1000 ML 1,000 ML IV PRN (11:36)
[2019-02-14 12:00] VITALS: BP 120/72
--- NOTE | 2019-02-14 14:14 | NUR ---
BRENNEN and caseworker intake met with pt's family members, Joanna (cousin) and aunt/ uncle. They are concerned with pt's medical condition and wanted to get an updated regarding pt's discharge plan. manager lsw will attempt to schedule a meeting with Dr. Wilson to meet with the family to discuss pt's medical condition. Pt' sister and [id number] will be arriving tomorrow to visit the pt.
--- NOTE | 2019-02-14 18:48 | NUR ---
RN NOTES Patient removed IV line at this time, tried reinserting, failed.
--- NOTE | 2019-02-14 18:54 | NUR ---
RN MS CLOSING NOTES Patient remains on room air, no sob noted, remains confused and a/o x2. Ambulates with assistance, Patient removed L hand 20 gauge, 1/2 NS 125 ml per hour. Bed at the lowest setting, call light within reach, side rails up x2. Will give report to NOC RN for NANCY bedside.
--- NOTE | 2019-02-14 19:00 | NUR ---
MS RN NOTE RECEIVED PT IN STABLE CONDITION A/O X 1-2, NOTED WITH SITTER AT BEDSIDE. NO SIGNS OF SOB OR DISTRESS, NO INDICATIONS OF PAIN OR N/V. PER SHIFT REPORT, NO IV NOTED. WILL TRY TO REINSERT. ALL CURRENT NEEDS ATTENDED TO. BED LOW, LOCKED, UPPER RAILS UP, AND CALL LIGHT WITHIN REACH. WILL CONT TO MONITOR.
[2019-02-14 20:00] VITALS: BP 116/78
[2019-02-14] MEDS: OLANZAPINE 5 MG/TAB.RAPDIS PO SCH (21:03)
[2019-02-15 04:04] VITALS: BP 118/66
--- NOTE | 2019-02-15 04:06 | NUR ---
MS RN NOTE ATTEMPTED TO START LINE ON PT. PT KEEPS MOVING IN BED AND LINE GETS PULLED. INGRID NOTIFIED OF NO LINE. WILL CONT. TO MONITOR.
--- NOTE | 2019-02-15 06:20 | NUR ---
MS RN NOTE PT REMAINS IN STABLE CONDITION A/O X 1-2, NOTED WITH SITTER AT BEDSIDE. NO SIGNS OF SOB OR DISTRESS, NO INDICATIONS OF PAIN OR N/V. PT NOTED WITHOUT IV, INGRID AWARE. ALL CURRENT NEEDS ATTENDED TO. BED LOW, LOCKED, UPPER RAILS UP, AND CALL LIGHT WITHIN REACH. WILL CONT TO MONITOR AND ENDORSE TO NEXT SHIFT FOR NANCY.
--- NOTE | 2019-02-15 07:30 | NUR ---
RECEIVE PT WITH NO IV LINE.
[2019-02-15 08:00] VITALS: BP 117/66
--- NOTE | 2019-02-15 08:20 | NUR ---
ATTEMPTED TO INCERT IV LINE. PATIENT REFUSED
[2019-02-15] MEDS: PANTOPRAZOLE 40 MG VIAL IV SCH (09:00)
[2019-02-15] MEDS: CLOTRIMAZOLE 1% 15 GM TUBE TP SCH ×2 (09:38→17:27)
[2019-02-15] MEDS: ASPIRIN 81 MG TAB.CHEW PO SCH (09:38)
[2019-02-15 16:00] VITALS: BP 115/69
[2019-02-15] MEDS: HALOPERIDOL 5 MG TABLET PO PRN (17:45)
--- NOTE | 2019-02-15 17:45 | NUR ---
PATIENT BECAME VERY AGITATED, PRN HALDOL 5MG PO GIVEN
--- NOTE | 2019-02-15 17:50 | NUR ---
PATIENT ASSISTED WITH FEEDING. NO SWALLOW PROBLEMS ON SOFT DIET.
--- NOTE | 2019-02-15 19:02 | NUR ---
PATIENT RESTING IN BED; CALM AND COOPERATIVE AT THIS TIME. ALL NEEDS ATTENDED. PATIENT 1;1 SITTER FOR SAFETY. SEIZER PRECAUTIONS IN PLACE. NO IV LINE ASSES; AWARE. WILL ENDORSE TO NEXT SHIFT FOR NANCY.
--- NOTE | 2019-02-15 20:03 | NUR ---
MS RN NOTES RECEIVED PATIENT AWAKE IN BED WITH NO DISTRESS NOTED. CALL LIGHT WITHIN REACH. SITTER AT BEDSIDE. PATIENT CONSTANTLY TRYING TO GET OUT OF BED BUT ABLE TO REDIRECT WITH CONTINUED ENCOURAGEMENT. NO C/O PAIN OR DISCOMFORT. ROOM FREE OF CLUTTER AND BELONGINGS KEPT NEAR BEDSIDE. BED IN LOW LOCK SETTING. WILL CONTINUE TO MONITOR.
[2019-02-15] MEDS: OLANZAPINE 5 MG/TAB.RAPDIS PO SCH (21:08)
[2019-02-16] VITALS: BP 112/69
--- NOTE | 2019-02-16 06:33 | NUR ---
MS RN NOTES PATIENT ASLEEP IN BED WITH NO DISTRESS NOTED. CALL LIGHT WITHIN REACH. SITTER AT BEDSIDE. ALL DUE MEDS GIVEN ORDERED WITH NO ASE NOTED. NO C/O PAIN OR DISCOMFORT. BED IN LOW LOCK SETTING. ROOM FREE OF CLUTTER AND BELONGINGS KEPT NEAR BEDSIDE. WILL ENDORSE TO ONCOMING SHIFT.
--- NOTE | 2019-02-16 07:28 | NUR ---
MS RN OPENING NOTES RECEIVED PATIENT AWAKE IN BED IN NO ACUTE SIGNS OF DISTRESS. 1:1 SITTER AT BEDSIDE. A/O X1-2. CALM AND QUIET AT THIS TIME. ON ROOM AIR, BREATHING EVEN AND UNLABORED. NO IV ACCESS, MD AWARE. SAFETY MEASURES IN PLACE. BED IN LOW LOCKED POSITION. CALL LIGHT WITHIN EASY REACH OF PT. WILL CONTINUE TO MONITOR
[2019-02-16 08:00] VITALS: BP 112/71
[2019-02-16] MEDS: PANTOPRAZOLE 40 MG VIAL IV SCH (08:22)
[2019-02-16] MEDS: ASPIRIN 81 MG TAB.CHEW PO SCH (08:22)
[2019-02-16] MEDS: CLOTRIMAZOLE 1% 15 GM TUBE TP SCH (09:35)
[2019-02-16] MEDS ORDERED: ENSURE ENLIVE 237 ML LIQUID (VANILLA) PO SCH ×2 (10:30→13:00)
[2019-02-16] MEDS: HALOPERIDOL 5 MG TABLET PO PRN (13:56)
--- NOTE | 2019-02-16 14:01 | NUR ---
RN NOTES PT NOTED VERY RESTLESS AND TRYING TO GET OUT OF BED. PRN HALDOL 5MG PO ADMINISTERED AT 1356. WILL CONTINUE TO MONITOR PT CLOSELY.
[2019-02-16] MEDS: HYDROCODONE/APAP 5/325MG 1 EACH TABLET PO PRN (14:51)
[2019-02-16 16:00] VITALS: BP 125/82
--- NOTE | 2019-02-16 16:41 | NUR ---
RN DISCHARGED NOTES PT DISCHARGED HOME IN STABLE CONDITION. A/O X2, CALMED AND QUIET DURING DISCHARGE. VS/ TAKEN, STABLE AND RECORDED. PHOTOS OF SKIN ISSUES TAKEN AND FILED ON CHART. ALL BELONGINGS ACCOUNTED FOR AND SIGNED FORM. NAME ARMBAND REMOVED. HEALTH TEACHINGS /DISCHARGED INSTRUCTIONS GIVEN TO FAMILY AND VERBALIZED GOOD UNDERSTANDING. PT LEFT UNIT AT 1620 VIA WHEELCHAIR ACCOMPANIED BY EDGE BANDING OFF BEARER, FAMILY AND FRIENDS. MD AND CHARGE NURSE AWARE OF DISCHARGE.
== END 2019-02-16 16:15 | disposition home or self-care (01) | DRG 816 ==
LOC: ER 21:04 → ICU 02-01 02:28 → TELE1 02-02 15:31 → MEDSG1 02-04 11:01 → ICU 02-07 06:07 → TELE1 02-07 17:52 → TELE-TD 02-09 22:01 → TELE1 02-10 11:10 → MEDSG1 02-12 09:54
PROVIDERS: ADMIT Nurse Practitioner Acute Care
DX: T40.5X1A Poisoning by cocaine, accidental (unintentional), initial encounter (principal); I21.4 Non-ST elevation (NSTEMI) myocardial infarction; I63.9 Cerebral infarction, unspecified; K72.00 Acute and subacute hepatic failure without coma; N17.0 Acute kidney failure with tubular necrosis; I20.1 Angina pectoris with documented spasm; E83.39 Other disorders of phosphorus metabolism; G92 Toxic encephalopathy; E83.41 Hypermagnesemia; E83.51 Hypocalcemia; E87.0 Hyperosmolality and hypernatremia; D64.9 Anemia, unspecified; T40.601A Poisoning by unspecified narcotics, accidental (unintentional), initial encounter; T43.621A Poisoning by amphetamines, accidental (unintentional), initial encounter; Y92.89 Other specified places as the place of occurrence of the external cause; F14.10 Cocaine abuse, uncomplicated; M62.82 Rhabdomyolysis; N39.0 Urinary tract infection, site not specified; D72.829 Elevated white blood cell count, unspecified; F19.10 Other psychoactive substance abuse, uncomplicated; N13.9 Obstructive and reflux uropathy, unspecified; R40.2422 Glasgow coma scale score 9-12, at arrival to emergency department; F15.93 Other stimulant use, unspecified with withdrawal; M79.7 Fibromyalgia; M41.9 Scoliosis, unspecified; E83.42 Hypomagnesemia; R74.0 Nonspecific elevation of levels of transaminase and lactic acid dehydrogenase [LDH]
CPT/HCPCS: 36415; 70450-TC; 70551-TC; 71045-TC; 75574; 76700-TC; 80048-TC; 80053-TC; 80061-TC; 80076-TC; 80305; 81000-TC; 82140-TC; 82550-TC; 82570-TC; 83605-TC; 83735-TC; 84100-TC; 84155-TC; 84300-TC; 84439-TC; 84443-TC; 84484-TC; 84702-TC; 84703-TC; 85025-TC; 85610-TC; 85652-TC; 85730-TC; 87040-TC; 87081-TC; 87086-TC; 92526; 92611-TC; 93307-TC; 93312-TC; 97116-TC; 97530-TC; A4216; A4349; C9113; G0378; G0480; J0696; J1630; J1650; J2060; J2704; J3010; J3475; J3480; J3490; J7030; J7050; J7060; Q9967